=== PATIENT | female | born 1940 | race Caucasian/White ===

== ENCOUNTER → 2018-03-09 15:22 | Outpatient (CLI) | payer MEDICARE, SELFPAY | PROVIDERS: PCP Family Medicine; Visit Provider Student in an Organized Health Care Education/Training Program | DX: Z12.11 Encounter for screening for malignant neoplasm of colon (principal) ==

== ENCOUNTER → 2018-03-09 15:27 | Outpatient (CLI) | payer MEDICARE, SELFPAY ==
[2018-03-09 15:55] LABS: Hematocrit 43.6 % (36-46); Hemoglobin 14.5 g/dL (12.0-16.0); Mean Corpuscular HGB Conc 33.4 % (30-36); Mean Corpuscular Hemoglobin 30.2 PG (26-34); Mean Corpuscular Volume 90.6 fL (80-100); Platelet Count 251 X10^3/uL (150-400); Red Blood Cell Count 4.81 X10^6/uL (4.0-5.2); White Blood Cell Count 6.8 X10^3/uL (4.5-11.0)
[2018-03-09 16:16] LABS: Alanine Aminotransferase 27 IU/L (9-52); Albumin 4.6 g/dL (3.5-5.0); Albumin Globulin Ratio 1.3 (1.0-2.8); Alkaline Phosphatase 89 U/L (38-126); Aspartate Aminotransferase 25 IU/L (14-36); Bilirubin Total 0.3 mg/dL (0.2-1.3); Blood Urea Nitrogen 21 mg/dL (7-17); Calcium 9.8 mg/dL (8.4-10.2); Carbon Dioxide 30 mmol/L (22-32); Chloride 99 mmol/L (98-107); Estimated Glomerular Filt Rate > 60.0 mL/min (>60); Globulin 3.5 g/dL (1.7-4.1); Glucose 100 mg/dL (80-110); HEMOLYSIS < 15 (0-50); Potassium 4.5 mmol/L (3.4-5.1); Sodium 143 mmol/L (137-145); Total Protein 8.1 g/dL (6.3-8.2)
[2018-03-09 16:33] LABS: Vitamin D 25 Hydroxy (D3) 54.6 ng/mL (30.0-100.0)
[2018-03-09 16:34] LABS: Free T4, Direct Thyroxine 1.86 ng/dL (0.78-2.19)
[2018-03-09 16:48] LABS: Thyroid Stimulating Hormone 2.71 uIU/mL (0.47-4.68)
== END ==
PROVIDERS: PCP Student in an Organized Health Care Education/Training Program; Visit Provider Student in an Organized Health Care Education/Training Program
DX: E03.9 Hypothyroidism, unspecified (principal); J30.1 Allergic rhinitis due to pollen; E55.9 Vitamin D deficiency, unspecified; E78.00 Pure hypercholesterolemia, unspecified; I10 Essential (primary) hypertension; Z79.899 Other long term (current) drug therapy
CPT/HCPCS: 36415; 80053; 82306; 84439; 84443; 85027

== ENCOUNTER → 2018-03-16 12:49 | Outpatient (CLI) | payer MEDICARE, SELFPAY ==
[2018-03-19 15:49] LABS: Fecal Immunochemical Test NOT DETECTED
== END ==
PROVIDERS: PCP Student in an Organized Health Care Education/Training Program; Visit Provider Student in an Organized Health Care Education/Training Program
DX: E78.00 Pure hypercholesterolemia, unspecified (principal); I10 Essential (primary) hypertension; E03.9 Hypothyroidism, unspecified; E55.9 Vitamin D deficiency, unspecified; J30.1 Allergic rhinitis due to pollen; Z79.899 Other long term (current) drug therapy; Z12.11 Encounter for screening for malignant neoplasm of colon
CPT/HCPCS: 82274

== ENCOUNTER → 2019-03-27 09:37 | Outpatient (CLI) | payer MEDICARE, SELFPAY | PROVIDERS: PCP Student in an Organized Health Care Education/Training Program; Visit Provider Student in an Organized Health Care Education/Training Program | DX: M81.0 Age-related osteoporosis without current pathological fracture (principal); Z78.0 Asymptomatic menopausal state; E07.9 Disorder of thyroid, unspecified; Z85.3 Personal history of malignant neoplasm of breast; Z82.62 Family history of osteoporosis | CPT/HCPCS: 77080 ==

== ENCOUNTER → 2020-02-02 14:29 | Outpatient (CLI) | payer MEDICARE, SELFPAY ==
--- NOTE | 2020-02-02 14:30 | DI.RAD.S_ITS ---
PROCEDURE: XR CHEST 2V INDICATIONS: Cough, wheeze TECHNIQUE: 2 views of the chest were acquired. COMPARISON: [facility], , CHEST 2 VIEW, 10/22/2015, 12:59. FINDINGS: Surgical changes and devices: Right axillary surgical clips. Lungs and pleura: Lung volumes are increased with flattening of the hemidiaphragms suggesting COPD. Lungs are clear. Mild interstitial prominence unchanged. No pleural effusions or pneumothorax. Mediastinum: Mediastinal contours are normal. Heart size is normal. Bones and chest wall: No suspicious bony abnormalities. Soft tissues appear unremarkable. IMPRESSION: Lung volumes are increased suggesting COPD, correlate with pulmonary functions test. No acute cardiopulmonary disease. Dictated by: Montez BAUTISTA Interpreted: Jaret Ricci MD on 02/02/2020 at 15:14 Approved by: Jaret Ricci M.D. on 02/02/2020 at 15:34
== END ==
PROVIDERS: PCP Student in an Organized Health Care Education/Training Program; Referring Provider Student in an Organized Health Care Education/Training Program; Visit Provider Student in an Organized Health Care Education/Training Program
DX: J45.20 Mild intermittent asthma, uncomplicated (principal); R05 Cough
CPT/HCPCS: 71046

== ENCOUNTER 2020-05-04 05:56 | Inpatient (IN) | payer MEDICARE, SELFPAY ==
[2020-05-04] VITALS (20 sets, daily range): BP systolic 153–208; BP diastolic 79–99; PULSE 84–97; RESP 16–28; TEMP 36–37.2; O2SAT 90–97; BMI 18.8; BMI 18.3
--- NOTE | 2020-05-04 06:10 | DI.RAD.S_ITS ---
PROCEDURE: XR CHEST 1V INDICATIONS: Short of breath TECHNIQUE: One view of the chest was acquired. COMPARISON: [facility], CHEST 2 VIEW, 10/22/2015, 12:59. [facility], CHEST 2 VIEW, 03/15/2014, 10:55. [facility], , XR CHEST 2V, 02/02/2020, 14:28. FINDINGS: Surgical changes and devices: Right axillary clips are seen. Lungs and pleura: Lungs are clear, yet hyperexpanded. No pleural effusions or pneumothorax. Mediastinum: The cardiac contours are within normal limits. The aorta demonstrates calcification and tortuosity. Bones and chest wall: No suspicious bony lesions. Age-appropriate bony degenerative changes are seen. Mild dextroconvex scoliotic curvature is seen. Overlying soft tissues appear unremarkable. IMPRESSION: Hyperexpanded lungs, without an acute cardiopulmonary process identified. Postoperative and degenerative changes are seen. Note: No significant discrepancy from the preliminary report. Dictated by: Gus Chavez M.D. on 05/04/2020 at 7:16 Approved by: Gus Chavez M.D. on 05/04/2020 at 7:16
--- NOTE | 2020-05-04 06:13 | ED_ITS ---
HPI - SOB/Dyspnea <James Man DO - Last Filed: 05/05/20 00:22> General Chief Complaint: Shortness of Breath/Dyspnea Stated Complaint: SOB Time Seen by Provider: 05/04/20 06:00 Source: patient and EMS Mode of arrival: EMS Limitations: no limitations History of Present Illness HPI Narrative: 80-year-old female nonsmoker with history of asthma and hypothyroid presents by EMS with a chief complaint of a few days of gradually worsening shortness of breath. She states that she has not been admitted into the hospital since 1990. She denies exposure to COVID. She denies fever or chills. She denies nausea, vomiting or diarrhea. She has been using her albuterol, without a spacer and has continued to feel tightness with shortness of breath. MD Complaint: shortness of breath and cough Onset (ago): day(s) Severity: moderate Consistency/Duration: constant Relieving factors: nothing Exacerbating factors: exertion Known history of: COPD Associated symptoms: denies other symptoms Treatment prior to arrival: none Related Data Home oxygen amount: none Home Medications Medication Instructions Recorded Confirmed cholecalciferol (vitamin D3) 1,000 iu PO Q DAY #0 08/11/10 05/04/20 [Vitamin D3] montelukast [Singulair] 10 mg PO BEDTIME 05/04/20 05/04/20 Previous Rx's Medication Instructions Recorded levothyroxine 112 mcg tablet 112 mcg PO QAM #90 tab 03/23/19 albuterol sulfate 90 mcg/actuation 2 puff INHALATION Q6H PRN #6.7 gram 01/10/20 aerosol inhaler pravastatin 20 mg tablet 20 mg PO HS #90 tab 03/15/20 tiotropium bromide 2.5 2 inh INHALATION QAM #4 g 03/15/20 mcg/actuation mist for inhalation Allergies Allergy/AdvReac Type Severity Reaction Status Date / Time sulfite AdvReac Severe Vomiting Verified 05/04/20 10:24 ANTIBIOTIC Allergy Mild CANT Uncoded 02/02/20 14:00 REMEMBER NAME seasonal allergies Allergy Mild ITCHY ALL Uncoded 02/02/20 14:00 OVER Review of Systems <James Man DO - Last Filed: 05/05/20 00:22> Constitutional Constitutional: Denies chills, Denies fatigue, Denies fever(s), Denies frequent falls, Denies lethargy and Denies weakness Eyes Eyes: Denies change in vision, Denies eye discharge, Denies irritation and Denies loss of vision ENT Ears, Nose, Mouth, and Throat: Denies change in voice, Denies dizziness, Denies neck pain, Denies sore throat and Denies throat swelling Cardiovascular Cardiovascular: Denies chest pain, Denies irregular heart rhythm, Denies lightheadedness, Denies palpitations, Reports dyspnea, Denies dyspnea on exertion and Denies orthopnea Respiratory Respiratory: Reports cough, Reports dyspnea, Denies dyspnea on exertion and Denies wheezing Gastrointestinal Gastrointestinal: Denies abdominal pain, Denies change in bowel habits, Denies diarrhea, Denies nausea and Denies vomiting Musculoskeletal Musculoskeletal: Denies neck pain and Denies numbness Integumentary/Breasts Skin/Breast: Denies pruritus, Denies erythema, Denies rash and Denies wounds Neurologic Neurologic: Denies behavioral changes, Denies confusion, Denies dizziness, Denies frequent falls, Denies loss of vision, Denies numbness and Denies weakness Psychiatric Psychiatric: Denies anxiety, Denies behavioral changes, Denies confusion, Denies depression, Denies homicidal ideation and Denies suicidal ideation Endocrine Endocrine: Denies fatigue, Denies flushing and Denies palpitations Hematologic/Lymphatic Hematologic/Lymphatic: Denies easy bruising Allergic/Immunologic Allergic/Immunologic: Denies urticaria, Denies throat swelling and Denies wheezing Patient History <James Man DO - Last Filed: 05/05/20 00:22> Medical History Breast cancer (1990) Chicken pox COPD (chronic obstructive pulmonary disease) Hypothyroidism Measles Osteoporosis Whooping cough Surgical History Cataract extraction status of right eye Cataract extraction status, left eye Status post breast lumpectomy (1990) Family History Father Ulcer Mother Alzheimer's disease Sister Gallbladder disease Grandfather Kidney disease Grandmother complication Grandfather Stroke Grandmother Heart attack Social History household members: spouse Smoking Status: Never smoker alcohol intake: current substance use type: does not use Smoking Status: Never smoker Exam <DO Alan Isbell Last Filed: 05/05/20 00:22> Narrative Exam Narrative: GENERAL: [80] year old patient appears stated age. Well- nourished, well-developed patient, in mild distress. HEAD: Atraumatic. Normocephalic. EYES: Pupils equal round and reactive. Extraocular motions intact. No scleral icterus. No injection or drainage. ENT: Nose without bleeding, purulent drainage. Throat without erythema, tonsillar hypertrophy or exudate. Airway patent. NECK: Trachea midline. Non tender CARDIOVASCULAR: Regular rate and rhythm without murmurs, gallops, or rubs. RESPIRATORY: No obvious significant work of breathing. Mild widespread expiratory wheeze. . GASTROINTESTINAL: Abdomen soft, non-tender, nondistended. EXTREMITIES: No edema or joint tenderness. BACK: Nontender without deformity or crepitance. No flank tenderness. NEURO: AOx3. SKIN: No rash or erythema of visible areas Initial Vital Signs Initial Vital Signs: Vital Signs Temperature 98.0 F 05/04/20 06:00 Pulse Rate 91 H 05/04/20 06:00 Respiratory Rate 28 H 05/04/20 06:00 Blood Pressure 208/99 H 05/04/20 06:00 Pulse Oximetry 96 05/04/20 06:00 <Sangita Long DO - Last Filed: 05/04/20 15:03> Initial Vital Signs Initial Vital Signs: Vital Signs Temperature 98.0 F 05/04/20 06:00 Pulse Rate 91 H 05/04/20 06:00 Respiratory Rate 28 H 05/04/20 06:00 Blood Pressure 208/99 H 05/04/20 06:00 Pulse Oximetry 96 05/04/20 06:00 Course <James Man DO - Last Filed: 05/05/20 00:22> Orders Ordered: Acetaminophen (Acetaminophen 325 Mg Tablet) 650 mg PO Q6HR PRN PRN Reason: Fever/Mild Pain (1-3) Albuterol/Ipratropium (Albuterol/Ipratropium 3 Ml Ampul) 3 ml INH Q1H PRN PRN Reason: Shortness Of Breath Last Admin: 05/04/20 08:20 Dose: 3 ml Documented by: DAYTON Albuterol/Ipratropium (Albuterol/Ipratropium 3 Ml Ampul) 3 ml INH [id number] [facility] Last Admin: 05/04/20 18:04 Dose: 3 ml Documented by: DAYTON Bisacodyl (Bisacodyl 10 Mg Supp) 10 mg MD DAILY PRN PRN Reason: Constipation Docusate Sodium (Docusate 100 Mg Capsule) 100 mg PO BID [facility] Last Admin: 05/04/20 21:38 Dose: 100 mg Documented by: ASAD Doxycycline Hyclate (Doxycycline Hyclate 100 Mg Tablet) 100 mg PO BID [facility] Last Admin: 05/04/20 21:39 Dose: 100 mg Documented by: ASAD Enoxaparin Sodium (Enoxaparin 40 Mg/0.4 Ml Syringe) 40 mg SUBCUT DAILY [facility] Last Admin: 05/04/20 15:33 Dose: 40 mg Documented by: SP Dextrose/Sodium Chloride (Dextrose 5%-0.45% Ns) 1,000 mls @ 100 mls/hr IV CONT [facility] Last Admin: 05/04/20 15:32 Dose: 100 mls/hr Documented by: SP Levothyroxine Sodium (Levothyroxine 112 Mcg Tablet) 112 mcg PO DAILY@0600 [facility] Methylprednisolone (Methylprednisolone 125 Mg/2 Ml Vial) 60 mg IV Q8H [facility] Last Admin: 05/04/20 21:38 Dose: 60 mg Documented by: Admin: 05/04/20 15:32 Dose: 60 mg Documented by: SP Montelukast Sodium (Montelukast 10 Mg Tablet) 10 mg PO DAILY [facility] Last Admin: 05/04/20 15:25 Dose: Not Given Documented by: SP Naloxone HCl (Naloxone 0.4 Mg/Ml Vial) 0.2 mg IV Q2MIN PRN PRN Reason: Opiate Reversal Ondansetron HCl (Ondansetron 4 Mg/2 Ml Inj) 4 mg IV Q8HR PRN PRN Reason: Nausea And Vomiting Pravastatin Sodium (Pravastatin 20 Mg Tablet) 20 mg PO BEDTIME [facility] Last Admin: 05/04/20 21:39 Dose: 20 mg Documented by: ASAD Fluticasone/Salmeterol (Fluticasone/Salmeterol 250/50 60 Puff Diskus) 1 puff INH RTBID [facility] Last Admin: 05/04/20 18:10 Dose: 1 puff Documented by: DAYTON Discontinued Medications Albuterol (Albuterol Hfa Mdi 60 Puff/8 Gm Inhaler) 2 puff INH NOW ONE Stop: 05/04/20 06:11 Last Admin: 05/04/20 06:37 Dose: 2 puff Documented by: MARY JANE Prednisone (Prednisone 20 Mg Tablet) 40 mg PO NOW ONE Stop: 05/04/20 06:11 Last Admin: 05/04/20 06:28 Dose: 40 mg Documented by: OFE Vital Signs Vital signs: Vital Signs - 8 hr 05/04/20 07:30 05/04/20 08:00 05/04/20 08:24 Temperature Pulse Rate 85 87 92 H Respiratory Rate 18 Blood Pressure Pulse Oximetry 94 92 92 05/04/20 08:30 05/04/20 09:00 05/04/20 09:30 Temperature Pulse Rate 97 H 93 H 90 Respiratory Rate Blood Pressure Pulse Oximetry 94 91 92 05/04/20 10:00 05/04/20 10:17 05/04/20 12:40 Temperature 96.8 F L Pulse Rate 91 H 91 H 93 H Respiratory Rate 18 Blood Pressure 172/89 H 175/95 H Pulse Oximetry 94 97 95 <Sangita Long, DO - Last Filed: 05/04/20 15:03> Orders Ordered: Acetaminophen (Acetaminophen 325 Mg Tablet) 650 mg PO Q6HR PRN PRN Reason: Fever/Mild Pain (1-3) Albuterol/Ipratropium (Albuterol/Ipratropium 3 Ml Ampul) 3 ml INH Q1H PRN PRN Reason: Shortness Of Breath Last Admin: 05/04/20 08:20 Dose: 3 ml Documented by: DAYTON Albuterol/Ipratropium (Albuterol/Ipratropium 3 Ml Ampul) 3 ml INH [id number] [facility] Last Admin: 05/04/20 18:04 Dose: 3 ml Documented by: DAYTON Bisacodyl (Bisacodyl 10 Mg Supp) 10 mg MD DAILY PRN PRN Reason: Constipation Docusate Sodium (Docusate 100 Mg Capsule) 100 mg PO BID [facility] Last Admin: 05/04/20 21:38 Dose: 100 mg Documented by: ASAD Doxycycline Hyclate (Doxycycline Hyclate 100 Mg Tablet) 100 mg PO BID [facility] Last Admin: 05/04/20 21:39 Dose: 100 mg Documented by: ASAD Enoxaparin Sodium (Enoxaparin 40 Mg/0.4 Ml Syringe) 40 mg SUBCUT DAILY [facility] Last Admin: 05/04/20 15:33 Dose: 40 mg Documented by: SP Dextrose/Sodium Chloride (Dextrose 5%-0.45% Ns) 1,000 mls @ 100 mls/hr IV CONT [facility] Last Admin: 05/04/20 15:32 Dose: 100 mls/hr Documented by: SP Levothyroxine Sodium (Levothyroxine 112 Mcg Tablet) 112 mcg PO DAILY@0600 [facility] Methylprednisolone (Methylprednisolone 125 Mg/2 Ml Vial) 60 mg IV Q8H [facility] Last Admin: 05/04/20 21:38 Dose: 60 mg Documented by: Admin: 05/04/20 15:32 Dose: 60 mg Documented by: SP Montelukast Sodium (Montelukast 10 Mg Tablet) 10 mg PO DAILY [facility] Last Admin: 05/04/20 15:25 Dose: Not Given Documented by: SP Naloxone HCl (Naloxone 0.4 Mg/Ml Vial) 0.2 mg IV Q2MIN PRN PRN Reason: Opiate Reversal Ondansetron HCl (Ondansetron 4 Mg/2 Ml Inj) 4 mg IV Q8HR PRN PRN Reason: Nausea And Vomiting Pravastatin Sodium (Pravastatin 20 Mg Tablet) 20 mg PO BEDTIME [facility] Last Admin: 05/04/20 21:39 Dose: 20 mg Documented by: ASAD Fluticasone/Salmeterol (Fluticasone/Salmeterol 250/50 60 Puff Diskus) 1 puff INH RTBID [facility] Last Admin: 05/04/20 18:10 Dose: 1 puff Documented by: DAYTON Discontinued Medications Albuterol (Albuterol Hfa Mdi 60 Puff/8 Gm Inhaler) 2 puff INH NOW ONE Stop: 05/04/20 06:11 Last Admin: 05/04/20 06:37 Dose: 2 puff Documented by: MARY JANE Prednisone (Prednisone 20 Mg Tablet) 40 mg PO NOW ONE Stop: 05/04/20 06:11 Last Admin: 05/04/20 06:28 Dose: 40 mg Documented by: OFE Vital Signs Vital signs: Vital Signs - 8 hr 05/04/20 07:30 05/04/20 08:00 05/04/20 08:24 Temperature Pulse Rate 85 87 92 H Respiratory Rate 18 Blood Pressure Pulse Oximetry 94 92 92 05/04/20 08:30 05/04/20 09:00 05/04/20 09:30 Temperature Pulse Rate 97 H 93 H 90 Respiratory Rate Blood Pressure Pulse Oximetry 94 91 92 05/04/20 10:00 05/04/20 10:17 05/04/20 12:40 Temperature 96.8 F L Pulse Rate 91 H 91 H 93 H Respiratory Rate 18 Blood Pressure 172/89 H 175/95 H Pulse Oximetry 94 97 95 MDM - SOB/Dyspnea <James aMn DO - Last Filed: 05/05/20 00:22> Lab Data Result diagrams: 05/04/20 06:00 05/04/20 06:00 Labs: Lab Results 05/04/20 05/04/20 05/04/20 Range/Units 06:00 06:00 06:00 WBC 10.3 (4.5-11.0) X10^3/uL RBC 4.62 (4.0-5.2) X10^6/uL Hgb 13.1 (12.0-16.0) g/dL Hct 40.6 (36-46) % MCV 87.8 (80-100) fL MCH 28.3 (26-34) PG MCHC 32.2 (30-36) % RDW 12.6 (11.6-14.8) % Plt Count 438 H (150-400) X10^3/uL Neut % (Auto) 68.8 (50-75) % Lymph % (Auto) 14.6 L (25-40) % Morrison % (Auto) 6.9 (3-14) % Eos % (Auto) 9.3 H (2-4) % Baso % (Auto) 0.4 (0-2) % Neut # (Auto) 7100 H (6353-5014) /uL Lymph # (Auto) 1500 (3146-9685) /uL Morrison # (Auto) 700 (0-900) /uL Eos # (Auto) 1000 H (0-450) /uL Baso # (Auto) 0 (0-100) /uL D-Dimer (<230) ng/mL Sodium 139 (137-145) mmol/L Potassium 3.6 (3.4-5.1) mmol/L Chloride 101 (98-107) mmol/L Carbon Dioxide 35 H (22-32) mmol/L BUN 18 H (7-17) mg/dL Creatinine 1.05 H (0.52-1.04) mg/dL Estimated GFR 50.3 L (>60) mL/min BUN/Creatinine Ratio 17.1 (6-22) Glucose 111 H (80-110) mg/dL Calcium 9.4 (8.4-10.2) mg/dL Total Creatine Kinase (30-135) U/L CK-MB (CK-2) CK-MB (CK-2) Rel Index Troponin I (0.01-0.034) ng/mL NT-Pro-B Natriuret Pep (<450) pg/mL Procalcitonin < 0.05 (<0.5) ng/mL Chlamy pneumoniae PCR (Not Detect) Adenovirus (PCR) (Not Detect) B.parapertussis DNA PCR (Not Detect) Coronavirus OC43 (PCR) (Not Detect) Coronavirus HKU1 (PCR) (Not Detect) Coronavirus 229E (PCR) (Not Detect) SARS-CoV-2 (PCR) (Negative) Coronavirus NL63 (PCR) (Not Detect) Human Metapneumovir PCR (Not Detect) Influenza Type A (PCR) (Not Detect) Influenza Type B (PCR) (Not Detect) M. pneumoniae (PCR) (Not Detect) Parainfluenza 1 (PCR) (Not Detect) Parainfluenza 2 (PCR) (Not Detect) Parainfluenza 3 (PCR) (Not Detect) Parainfluenza 4 (PCR) (Not Detect) RSV (PCR) (Not Detect) Entero/Rhino (PCR) (Not Detect) 05/04/20 05/04/20 05/04/20 Range/Units 06:13 08:55 08:55 WBC (4.5-11.0) X10^3/uL RBC (4.0-5.2) X10^6/uL Hgb (12.0-16.0) g/dL Hct (36-46) % MCV (80-100) fL MCH (26-34) PG MCHC (30-36) % RDW (11.6-14.8) % Plt Count (150-400) X10^3/uL Neut % (Auto) (50-75) % Lymph % (Auto) (25-40) % Morrison % (Auto) (3-14) % Eos % (Auto) (2-4) % Baso % (Auto) (0-2) % Neut # (Auto) (4031-9270) /uL Lymph # (Auto) (0732-6366) /uL Morrison # (Auto) (0-900) /uL Eos # (Auto) (0-450) /uL Baso # (Auto) (0-100) /uL D-Dimer 351 H (<230) ng/mL Sodium (137-145) mmol/L Potassium (3.4-5.1) mmol/L Chloride (98-107) mmol/L Carbon Dioxide (22-32) mmol/L BUN (7-17) mg/dL Creatinine (0.52-1.04) mg/dL Estimated GFR (>60) mL/min BUN/Creatinine Ratio (6-22) Glucose (80-110) mg/dL Calcium (8.4-10.2) mg/dL Total Creatine Kinase 45 (30-135) U/L CK-MB (CK-2) TNP CK-MB (CK-2) Rel Index TNP Troponin I < 0.012 (0.01-0.034) ng/mL NT-Pro-B Natriuret Pep 379 (<450) pg/mL Procalcitonin (<0.5) ng/mL Chlamy pneumoniae PCR (Not Detect) Adenovirus (PCR) (Not Detect) B.parapertussis DNA PCR (Not Detect) Coronavirus OC43 (PCR) (Not Detect) Coronavirus HKU1 (PCR) (Not Detect) Coronavirus 229E (PCR) (Not Detect) SARS-CoV-2 (PCR) Negative (Negative) Coronavirus NL63 (PCR) (Not Detect) Human Metapneumovir PCR (Not Detect) Influenza Type A (PCR) (Not Detect) Influenza Type B (PCR) (Not Detect) M. pneumoniae (PCR) (Not Detect) Parainfluenza 1 (PCR) (Not Detect) Parainfluenza 2 (PCR) (Not Detect) Parainfluenza 3 (PCR) (Not Detect) Parainfluenza 4 (PCR) (Not Detect) RSV (PCR) (Not Detect) Entero/Rhino (PCR) (Not Detect) 05/04/20 Range/Units 11:18 WBC (4.5-11.0) X10^3/uL RBC (4.0-5.2) X10^6/uL Hgb (12.0-16.0) g/dL Hct (36-46) % MCV (80-100) fL MCH (26-34) PG MCHC (30-36) % RDW (11.6-14.8) % Plt Count (150-400) X10^3/uL Neut % (Auto) (50-75) % Lymph % (Auto) (25-40) % Morrison % (Auto) (3-14) % Eos % (Auto) (2-4) % Baso % (Auto) (0-2) % Neut # (Auto) (5330-7134) /uL Lymph # (Auto) (0057-9174) /uL Morrison # (Auto) (0-900) /uL Eos # (Auto) (0-450) /uL Baso # (Auto) (0-100) /uL D-Dimer (<230) ng/mL Sodium (137-145) mmol/L Potassium (3.4-5.1) mmol/L Chloride (98-107) mmol/L Carbon Dioxide (22-32) mmol/L BUN (7-17) mg/dL Creatinine (0.52-1.04) mg/dL Estimated GFR (>60) mL/min BUN/Creatinine Ratio (6-22) Glucose (80-110) mg/dL Calcium (8.4-10.2) mg/dL Total Creatine Kinase (30-135) U/L CK-MB (CK-2) CK-MB (CK-2) Rel Index Troponin I (0.01-0.034) ng/mL NT-Pro-B Natriuret Pep (<450) pg/mL Procalcitonin (<0.5) ng/mL Chlamy pneumoniae PCR Not detected (Not Detect) Adenovirus (PCR) Not detected (Not Detect) B.parapertussis DNA PCR Not detected (Not Detect) Coronavirus OC43 (PCR) Not detected (Not Detect) Coronavirus HKU1 (PCR) Not detected (Not Detect) Coronavirus 229E (PCR) Not detected (Not Detect) SARS-CoV-2 (PCR) Not detected (Negative) Coronavirus NL63 (PCR) Not detected (Not Detect) Human Metapneumovir PCR Not detected (Not Detect) Influenza Type A (PCR) Not detected (Not Detect) Influenza Type B (PCR) Not detected (Not Detect) M. pneumoniae (PCR) Not detected (Not Detect) Parainfluenza 1 (PCR) Not detected (Not Detect) Parainfluenza 2 (PCR) Not detected (Not Detect) Parainfluenza 3 (PCR) Not detected (Not Detect) Parainfluenza 4 (PCR) Not detected (Not Detect) RSV (PCR) Not detected (Not Detect) Entero/Rhino (PCR) Not detected (Not Detect) <Sangita Long, - Last Filed: 05/04/20 15:03> Lab Data Attestation: I reviewed the patient's lab results. Labs: Lab Results 05/04/20 05/04/20 05/04/20 Range/Units 06:00 06:00 06:00 WBC 10.3 (4.5-11.0) X10^3/uL RBC 4.62 (4.0-5.2) X10^6/uL Hgb 13.1 (12.0-16.0) g/dL Hct 40.6 (36-46) % MCV 87.8 (80-100) fL MCH 28.3 (26-34) PG MCHC 32.2 (30-36) % RDW 12.6 (11.6-14.8) % Plt Count 438 H (150-400) X10^3/uL Neut % (Auto) 68.8 (50-75) % Lymph % (Auto) 14.6 L (25-40) % Morrison % (Auto) 6.9 (3-14) % Eos % (Auto) 9.3 H (2-4) % Baso % (Auto) 0.4 (0-2) % Neut # (Auto) 7100 H (3822-2639) /uL Lymph # (Auto) 1500 (7740-9882) /uL Morrison # (Auto) 700 (0-900) /uL Eos # (Auto) 1000 H (0-450) /uL Baso # (Auto) 0 (0-100) /uL D-Dimer (<230) ng/mL Sodium 139 (137-145) mmol/L Potassium 3.6 (3.4-5.1) mmol/L Chloride 101 (98-107) mmol/L Carbon Dioxide 35 H (22-32) mmol/L BUN 18 H (7-17) mg/dL Creatinine 1.05 H (0.52-1.04) mg/dL Estimated GFR 50.3 L (>60) mL/min BUN/Creatinine Ratio 17.1 (6-22) Glucose 111 H (80-110) mg/dL Calcium 9.4 (8.4-10.2) mg/dL Total Creatine Kinase (30-135) U/L CK-MB (CK-2) CK-MB (CK-2) Rel Index Troponin I (0.01-0.034) ng/mL NT-Pro-B Natriuret Pep (<450) pg/mL Procalcitonin < 0.05 (<0.5) ng/mL Chlamy pneumoniae PCR (Not Detect) Adenovirus (PCR) (Not Detect) B.parapertussis DNA PCR (Not Detect) Coronavirus OC43 (PCR) (Not Detect) Coronavirus HKU1 (PCR) (Not Detect) Coronavirus 229E (PCR) (Not Detect) SARS-CoV-2 (PCR) (Negative) Coronavirus NL63 (PCR) (Not Detect) Human Metapneumovir PCR (Not Detect) Influenza Type A (PCR) (Not Detect) Influenza Type B (PCR) (Not Detect) M. pneumoniae (PCR) (Not Detect) Parainfluenza 1 (PCR) (Not Detect) Parainfluenza 2 (PCR) (Not Detect) Parainfluenza 3 (PCR) (Not Detect) Parainfluenza 4 (PCR) (Not Detect) RSV (PCR) (Not Detect) Entero/Rhino (PCR) (Not Detect) 05/04/20 05/04/20 05/04/20 Range/Units 06:13 08:55 08:55 WBC (4.5-11.0) X10^3/uL RBC (4.0-5.2) X10^6/uL Hgb (12.0-16.0) g/dL Hct (36-46) % MCV (80-100) fL MCH (26-34) PG MCHC (30-36) % RDW (11.6-14.8) % Plt Count (150-400) X10^3/uL Neut % (Auto) (50-75) % Lymph % (Auto) (25-40) % Morrison % (Auto) (3-14) % Eos % (Auto) (2-4) % Baso % (Auto) (0-2) % Neut # (Auto) (7535-8859) /uL Lymph # (Auto) (4729-8623) /uL Morrison # (Auto) (0-900) /uL Eos # (Auto) (0-450) /uL Baso # (Auto) (0-100) /uL D-Dimer 351 H (<230) ng/mL Sodium (137-145) mmol/L Potassium (3.4-5.1) mmol/L Chloride (98-107) mmol/L Carbon Dioxide (22-32) mmol/L BUN (7-17) mg/dL Creatinine (0.52-1.04) mg/dL Estimated GFR (>60) mL/min BUN/Creatinine Ratio (6-22) Glucose (80-110) mg/dL Calcium (8.4-10.2) mg/dL Total Creatine Kinase 45 (30-135) U/L CK-MB (CK-2) TNP CK-MB (CK-2) Rel Index TNP Troponin I < 0.012 (0.01-0.034) ng/mL NT-Pro-B Natriuret Pep 379 (<450) pg/mL Procalcitonin (<0.5) ng/mL Chlamy pneumoniae PCR (Not Detect) Adenovirus (PCR) (Not Detect) B.parapertussis DNA PCR (Not Detect) Coronavirus OC43 (PCR) (Not Detect) Coronavirus HKU1 (PCR) (Not Detect) Coronavirus 229E (PCR) (Not Detect) SARS-CoV-2 (PCR) Negative (Negative) Coronavirus NL63 (PCR) (Not Detect) Human Metapneumovir PCR (Not Detect) Influenza Type A (PCR) (Not Detect) Influenza Type B (PCR) (Not Detect) M. pneumoniae (PCR) (Not Detect) Parainfluenza 1 (PCR) (Not Detect) Parainfluenza 2 (PCR) (Not Detect) Parainfluenza 3 (PCR) (Not Detect) Parainfluenza 4 (PCR) (Not Detect) RSV (PCR) (Not Detect) Entero/Rhino (PCR) (Not Detect) 05/04/20 Range/Units 11:18 WBC (4.5-11.0) X10^3/uL RBC (4.0-5.2) X10^6/uL Hgb (12.0-16.0) g/dL Hct (36-46) % MCV (80-100) fL MCH (26-34) PG MCHC (30-36) % RDW (11.6-14.8) % Plt Count (150-400) X10^3/uL Neut % (Auto) (50-75) % Lymph % (Auto) (25-40) % Morrison % (Auto) (3-14) % Eos % (Auto) (2-4) % Baso % (Auto) (0-2) % Neut # (Auto) (2852-8945) /uL Lymph # (Auto) (0883-1633) /uL Morrison # (Auto) (0-900) /uL Eos # (Auto) (0-450) /uL Baso # (Auto) (0-100) /uL D-Dimer (<230) ng/mL Sodium (137-145) mmol/L Potassium (3.4-5.1) mmol/L Chloride (98-107) mmol/L Carbon Dioxide (22-32) mmol/L BUN (7-17) mg/dL Creatinine (0.52-1.04) mg/dL Estimated GFR (>60) mL/min BUN/Creatinine Ratio (6-22) Glucose (80-110) mg/dL Calcium (8.4-10.2) mg/dL Total Creatine Kinase (30-135) U/L CK-MB (CK-2) CK-MB (CK-2) Rel Index Troponin I (0.01-0.034) ng/mL NT-Pro-B Natriuret Pep (<450) pg/mL Procalcitonin (<0.5) ng/mL Chlamy pneumoniae PCR Not detected (Not Detect) Adenovirus (PCR) Not detected (Not Detect) B.parapertussis DNA PCR Not detected (Not Detect) Coronavirus OC43 (PCR) Not detected (Not Detect) Coronavirus HKU1 (PCR) Not detected (Not Detect) Coronavirus 229E (PCR) Not detected (Not Detect) SARS-CoV-2 (PCR) Not detected (Negative) Coronavirus NL63 (PCR) Not detected (Not Detect) Human Metapneumovir PCR Not detected (Not Detect) Influenza Type A (PCR) Not detected (Not Detect) Influenza Type B (PCR) Not detected (Not Detect) M. pneumoniae (PCR) Not detected (Not Detect) Parainfluenza 1 (PCR) Not detected (Not Detect) Parainfluenza 2 (PCR) Not detected (Not Detect) Parainfluenza 3 (PCR) Not detected (Not Detect) Parainfluenza 4 (PCR) Not detected (Not Detect) RSV (PCR) Not detected (Not Detect) Entero/Rhino (PCR) Not detected (Not Detect) Imaging Data Chest x-ray: Radiologist's Impression: PROCEDURE: XR CHEST 1V INDICATIONS: Short of breath TECHNIQUE: One view of the chest was acquired. COMPARISON: [facility], CHEST 2 VIEW, 10/22/2015, 12:59. [facility], CHEST 2 VIEW, 03/15/2014, 10:55. [facility], XR CHEST 2V, 02/02/2020, 14:28. FINDINGS: Surgical changes and devices: Right axillary clips are seen. Lungs and pleura: Lungs are clear, yet hyperexpanded. No pleural effusions or pneumothorax. Mediastinum: The cardiac contours are within normal limits. The aorta demonstrates calcification and tortuosity. Bones and chest wall: No suspicious bony lesions. Age-appropriate bony degenerative changes are seen. Mild dextroconvex scoliotic curvature is seen. Overlying soft tissues appear unremarkable. IMPRESSION: Hyperexpanded lungs, without an acute cardiopulmonary process identified. Postoperative and degenerative changes are seen. Note: No significant discrepancy from the preliminary report. Dictated by: Gus Chavez M.D. on 05/04/2020 at 7:16 Approved by: Gus Chavez M.D. on 05/04/2020 at 7:16 CT scan - chest: Radiologist's Impression: PROCEDURE: CT ANGIO CHEST PE PROTOCOL INDICATIONS: hypoxia TECHNIQUE: After the administration of intravenous contrast, 2 mm thick sections acquired from the pulmonary apices to the posterior costophrenic angles. 3-dimensional maximum intensity projection (MIP) coronal and sagittal reformats were then acquired through the thorax. For radiation dose reduction, the following was used: automated exposure control, adjustment of mA and/or kV according to patient size. COMPARISON: [facility], CR, XR CHEST 2V, 02/02/2020, 14:28. [facility], CR, XR CHEST 1V, 05/04/2020, 6:37. FINDINGS: Image quality: There is artifact associated with the metallic hardware. Pulmonary arteries: Pulmonary arteries are normal in size, and demonstrate no intraluminal filling defects to suggest central pulmonary embolism. Lungs and pleura: No focal infiltrates are seen. Areas of mucous plugging can be seen involving the lower lobes. No pleural effusions or pneumothorax. Central and peripheral airways are patent. Mediastinum: Heart size is normal, without pericardial effusion. No mediastinal or hilar adenopathy. Thoracic aorta is normal in caliber and enhancement. Esophagus is normal in caliber. There is a small hiatal hernia. Bones and chest wall: No suspicious bony lesions. Ribs and thoracic spine appear intact throughout. Age-appropriate bony degenerative changes are seen. Accentuated thoracic kyphosis is seen. Thyroid gland is small in size. No axillary or supraclavicular adenopathy. Status post right mastectomy. Right axillary clips are seen, with associated streak artifact. Abdomen: Apparent simple appearing liver cysts are seen. Incidental note is made of an accessory splenule along the hilum of the primary spleen. The visualized portions of the upper abdominal structures are otherwise unremarkable for imaging technique. IMPRESSION: Negative for pulmonary embolism. Areas of mucous plugging can be seen involving both lower lobes. No focal infiltrates are detected. Incidental note is made of: Right mastectomy, with right axillary clips Small hiatal hernia Simple appearing liver cysts Accessory splenule Dictated by: Gus Chavez M.D. on 05/04/2020 at 10:55 ECG Data Attestation: I personally reviewed and interpreted this ECG as follows: Prior ECG tracings: not available for review Interpretation: Sinus rhythm rate 93 p.r. interval 150 QRS [address] fan ges T-wave inversions no priors to compare MDM Narrative Medical decision making narrative: Received sign-out from Dr. Man next seen evaluated patient myself. She is still having bilateral wheezing O2 sat of 91%. She says she still does feel really great. She is short of breath when she walks. She was diagnosed with asthma about 10 years ago when she moved here. She previously did not have a rescue inhaler she has a rescue inhaler now she has been using it not much relief. She denies fever chills. Has a nonproductive cough. She is having some chest tightness. COVID-19 is negative. The patient is re-examined after albuterol nebulizer she is still quite wheezy. Ambulation trial O2 went down as far as 82% and she did not feel well. Troponin BNP are negative EKG does not show any specific changes. Patient has history of asthma seems to be asthma exacerbation. Dr. Leal updated patient's symptoms test results agrees with admission. Agrees with CT scan with persistent hypoxia. Discharge Plan Departure Patient Disposition: Admitted As Inpatient Clinical Impression: Asthma with exacerbation Qualifiers: Asthma severity: moderate Asthma persistence: unspecified Qualified Code(s): J45.901 - Unspecified asthma with (acute) exacerbation Admit Date/Time: 05/04/20 12:57 Admit Provider: Kalina Leal
[2020-05-04 06:25] LABS: Add Manual Diff / Slide Review NO; Basophils Absolute Auto 0 /uL (0-100); Basophils Percent Auto 0.4 % (0-2); Eosinophils Absolute Auto 1000 /uL (0-450); Eosinophils Percent Auto 9.3 % (2-4); Hematocrit 40.6 % (36-46); Hemoglobin 13.1 g/dL (12.0-16.0); Lymphocytes Absolute Auto 1500 /uL (1100-4500); Lymphocytes Percent Auto 14.6 % (25-40); Mean Corpuscular HGB Conc 32.2 % (30-36); Mean Corpuscular Hemoglobin 28.3 PG (26-34); Mean Corpuscular Volume 87.8 fL (80-100); Monocytes Absolute Auto 700 /uL (0-900); Monocytes Percent Auto 6.9 % (3-14); Neutrophils Absolute Auto 7100 /uL (1500-7000); Neutrophils Percent Auto 68.8 % (50-75); Platelet Count 438 X10^3/uL (150-400); Red Blood Cell Count 4.62 X10^6/uL (4.0-5.2); Red Cell Distribution Width 12.6 % (11.6-14.8); White Blood Cell Count 10.3 X10^3/uL (4.5-11.0)
[2020-05-04] MEDS: predniSONE 20 MG TABLET 40 MG PO (06:28)
[2020-05-04 06:32] LABS: BUN Creatinine Ratio 17.1 (6-22); Blood Urea Nitrogen 18 mg/dL (7-17); Calcium 9.4 mg/dL (8.4-10.2); Carbon Dioxide 35 mmol/L (22-32); Chloride 101 mmol/L (98-107); Estimated Glomerular Filt Rate 50.3 mL/min (>60); Glucose 111 mg/dL (80-110); HEMOLYSIS 17 (0-50); Potassium 3.6 mmol/L (3.4-5.1); Sodium 139 mmol/L (137-145)
[2020-05-04] MEDS: ALBUTEROL HFA MDI 60 PUFF/8 GM INHALER INH (06:37)
[2020-05-04 06:41] LABS: COVID19 -Nasal RAPID Negative (Negative)
[2020-05-04 06:57] LABS: Procalcitonin < 0.05 ng/mL (<0.5)
[2020-05-04] MEDS: ALBUTEROL/IPRATROPIUM 3 ML AMPUL INH ×2 (08:20→18:04)
--- NOTE | 2020-05-04 08:50 | PC.NURSE ---
drawn by lab
[2020-05-04 09:20] LABS: Creatine Kinase 45 U/L (30-135); D Dimer 351 ng/mL (<230)
--- NOTE | 2020-05-04 09:24 | PC.NURSE ---
Pt self adminiisters levothyroxine home medication with Dr Long's okay.
[2020-05-04 09:32] LABS: NT-proBNP (BNP-Adult 18+) 379 pg/mL (<450); Troponin I < 0.012 ng/mL (0.01-0.034)
--- NOTE | 2020-05-04 10:12 | PC.NURSE ---
Walking to bathroom 85-82% on room air w/ shortness of breath, unable top speak in full sentences. Once laying down 90% on room air. Placed on 2 L NC oxygen
--- NOTE | 2020-05-04 11:05 | DI.CT.S_ITS ---
PROCEDURE: CT ANGIO CHEST PE PROTOCOL INDICATIONS: hypoxia TECHNIQUE: After the administration of intravenous contrast, 2 mm thick sections acquired from the pulmonary apices to the posterior costophrenic angles. 3-dimensional maximum intensity projection (MIP) coronal and sagittal reformats were then acquired through the thorax. For radiation dose reduction, the following was used: automated exposure control, adjustment of mA and/or kV according to patient size. COMPARISON: [facility], CR, XR CHEST 2V, 02/02/2020, 14:28. [facility], CR, XR CHEST 1V, 05/04/2020, 6:37. FINDINGS: Image quality: There is artifact associated with the metallic hardware. Pulmonary arteries: Pulmonary arteries are normal in size, and demonstrate no intraluminal filling defects to suggest central pulmonary embolism. Lungs and pleura: No focal infiltrates are seen. Areas of mucous plugging can be seen involving the lower lobes. No pleural effusions or pneumothorax. Central and peripheral airways are patent. Mediastinum: Heart size is normal, without pericardial effusion. No mediastinal or hilar adenopathy. Thoracic aorta is normal in caliber and enhancement. Esophagus is normal in caliber. There is a small hiatal hernia. Bones and chest wall: No suspicious bony lesions. Ribs and thoracic spine appear intact throughout. Age-appropriate bony degenerative changes are seen. Accentuated thoracic kyphosis is seen. Thyroid gland is small in size. No axillary or supraclavicular adenopathy. Status post right mastectomy. Right axillary clips are seen, with associated streak artifact. Abdomen: Apparent simple appearing liver cysts are seen. Incidental note is made of an accessory splenule along the hilum of the primary spleen. The visualized portions of the upper abdominal structures are otherwise unremarkable for imaging technique. IMPRESSION: Negative for pulmonary embolism. Areas of mucous plugging can be seen involving both lower lobes. No focal infiltrates are detected. Incidental note is made of: Right mastectomy, with right axillary clips Small hiatal hernia Simple appearing liver cysts Accessory splenule Dictated by: Gus Chavez M.D. on 05/04/2020 at 10:55 Approved by: Gus Chavez M.D. on 05/04/2020 at 10:59
[2020-05-04 12:42] LABS: Adenovirus Not Detected (Not Detect); Bordetella pertussis Not Detected (Not Detect); Chlamydophila pneumoniae Not Detected (Not Detect); Coronavirus 229E Not Detected (Not Detect); Coronavirus HKU1 Not Detected (Not Detect); Coronavirus NL 63 Not Detected (Not Detect); Coronavirus OC43 Not Detected (Not Detect); Human Metapneumovirus Not Detected (Not Detect); Human Rhinovirus/Enterovirus Not Detected (Not Detect); Influenza A Not Detected (Not Detect); Influenza B Not Detected (Not Detect); Mycoplasma pneumoniae Not Detected (Not Detect); Parainfluenza Virus 1 Not Detected (Not Detect); Parainfluenza Virus 2 Not Detected (Not Detect); Parainfluenza Virus 3 Not Detected (Not Detect); Parainfluenza Virus 4 Not Detected (Not Detect); Respiratory Syncytial Virus Not Detected (Not Detect); SARS- CoV-2 Not Detected (Not Detecte)
--- NOTE | 2020-05-04 13:52 | PM.HP.1 ---
History of Present Illness History of Present Illness Date Patient Seen: 05/04/20 Chief complaint: SOB Narrative: Patient is an 80-year-old female with a history of COPD, hypothyroidism, remote history of breast cancer, who presents to the hospital for increasing shortness of breath. Patient reports her symptoms have been coming along for some time. She received a Spiriva inhaler 6 weeks ago. She noted her breathing felt better initially. However over the past week she has been increasingly short of breath, had associated cough, also reports dyspnea on exertion and orthopnea. Because her symptoms were progressively worse she called 911 to be brought to the hospital for evaluation. The patient was found to be hypoxic. She was diffusely wheezing. She was given multiple inhalers and steroids but continued to be symptomatic. The patient's chest x-ray did not show any evidence of infiltrate. She did have a CT angio which showed following findings No focal infiltrates are seen. Areas of mucous plugging can be seeninvolving the lower lobes. No pleural effusions or pneumothorax. Central and peripheral airways are patent. While talking to the patient on room air her oxygen saturation was 88%. She does report a productive cough with clear white phlegm. She is admitted to the hospital for acute hypoxic respiratory failure secondary to COPD/asthma. Patient History Medical History Breast cancer (1990) Chicken pox COPD (chronic obstructive pulmonary disease) Hypothyroidism Measles Osteoporosis Whooping cough Surgical History Cataract extraction status of right eye Cataract extraction status, left eye Status post breast lumpectomy (1990) Family & Social History Family History Father Ulcer Mother Alzheimer's disease Sister Gallbladder disease Grandfather Kidney disease Grandmother complication Grandfather Stroke Grandmother Heart attack Safety & Behavioral: Feels Safe in Current Yes Environment Been Physically Hurt or No Threatened By a Person Tobacco & Substance use: Smoking Status Never smoker alcohol intake current Meds Home Medications and Allergies Home Medications Medication Instructions Recorded Confirmed Type cholecalciferol (vitamin D3) 1,000 iu PO Q DAY #0 08/11/10 05/04/20 History [Vitamin D3] levothyroxine 112 mcg tablet 112 mcg PO QAM #90 tab 03/23/19 05/04/20 Rx albuterol sulfate 90 mcg/actuation 2 puff INHALATION Q6H PRN #6.7 gram 01/10/20 05/04/20 Rx aerosol inhaler pravastatin 20 mg tablet 20 mg PO HS #90 tab 03/15/20 05/04/20 Rx tiotropium bromide 2.5 2 inh INHALATION QAM #4 g 03/15/20 05/04/20 Rx mcg/actuation mist for inhalation montelukast [Singulair] 10 mg PO BEDTIME 05/04/20 05/04/20 History Allergies Allergy/AdvReac Type Severity Reaction Status Date / Time sulfite AdvReac Severe Vomiting Verified 05/04/20 10:24 ANTIBIOTIC Allergy Mild CANT Uncoded 02/02/20 14:00 REMEMBER NAME seasonal allergies Allergy Mild ITCHY ALL Uncoded 02/02/20 14:00 OVER Review of Systems Review of Systems ROS: Yes All systems reviewed with the patient and are negative except as otherwise documented Exam Vital Signs (past 8 hours): - 05/04/20 06:00 05/04/20 06:07 05/04/20 06:19 Temperature 98.0 F Pulse Rate 91 H 89 84 Respiratory Rate 28 H 16 Blood Pressure 208/99 H Pulse Oximetry 96 96 97 05/04/20 06:30 05/04/20 07:00 05/04/20 07:30 Temperature Pulse Rate 86 85 85 Respiratory Rate Blood Pressure Pulse Oximetry 95 95 94 05/04/20 08:00 05/04/20 08:24 05/04/20 08:30 Temperature Pulse Rate 87 92 H 97 H Respiratory Rate 18 Blood Pressure Pulse Oximetry 92 92 94 05/04/20 09:00 05/04/20 09:30 05/04/20 10:00 Temperature Pulse Rate 93 H 90 91 H Respiratory Rate Blood Pressure Pulse Oximetry 91 92 94 05/04/20 10:17 05/04/20 12:40 Temperature 96.8 F L Pulse Rate 91 H 93 H Respiratory Rate 18 Blood Pressure 172/89 H 175/95 H Pulse Oximetry 97 95 Oxygen Delivery Method Nasal Cannula Oxygen Flow Rate 2 Narrative Exam Narrative: Pleasant elderly female lying in bed mildly short of breath HEENT: Normocephalic atraumatic, extraocular muscles are intact, oropharynx is clear, neck is supple without adenopathy Lungs: Diffuse wheezing on inspiratory and expiratory inhalation exhalation, no rhonchi or crackles noted Cardiac exam: Regular rate and rhythm normal S1-S2 Abdomen: Soft nondistended nontender without hepatosplenomegaly Extremities: No edema Neuro exam: Nonfocal Objective Labs Result Diagrams: 05/04/20 06:00 05/04/20 06:00 Labs: Laboratory Results - last 24 hr 05/04/20 05/04/20 05/04/20 06:00 06:00 06:00 WBC 10.3 RBC 4.62 Hgb 13.1 Hct 40.6 MCV 87.8 MCH 28.3 MCHC 32.2 RDW 12.6 Plt Count 438 H Neut % (Auto) 68.8 Lymph % (Auto) 14.6 L [place] % (Auto) 6.9 Eos % (Auto) 9.3 H Baso % (Auto) 0.4 Neut # (Auto) 7100 H Lymph # (Auto) 1500 [place] # (Auto) 700 Eos # (Auto) 1000 H Baso # (Auto) 0 D-Dimer Sodium 139 Potassium 3.6 Chloride 101 Carbon Dioxide 35 H BUN 18 H Creatinine 1.05 H Estimated GFR 50.3 L BUN/Creatinine Ratio 17.1 Glucose 111 H Calcium 9.4 Total Creatine Kinase CK-MB (CK-2) CK-MB (CK-2) Rel Index Troponin I NT-Pro-B Natriuret Pep Procalcitonin < 0.05 Chlamy pneumoniae PCR Adenovirus (PCR) B.parapertussis DNA PCR Coronavirus OC43 (PCR) Coronavirus HKU1 (PCR) Coronavirus 229E (PCR) SARS-CoV-2 (PCR) Coronavirus NL63 (PCR) Human Metapneumovir PCR Influenza Type A (PCR) Influenza Type B (PCR) M. pneumoniae (PCR) Parainfluenza 1 (PCR) Parainfluenza 2 (PCR) Parainfluenza 3 (PCR) Parainfluenza 4 (PCR) RSV (PCR) Entero/Rhino (PCR) 05/04/20 05/04/20 05/04/20 06:13 08:55 08:55 WBC RBC Hgb Hct MCV MCH MCHC RDW Plt Count Neut % (Auto) Lymph % (Auto) [place] % (Auto) Eos % (Auto) Baso % (Auto) Neut # (Auto) Lymph # (Auto) [place] # (Auto) Eos # (Auto) Baso # (Auto) D-Dimer 351 H Sodium Potassium Chloride Carbon Dioxide BUN Creatinine Estimated GFR BUN/Creatinine Ratio Glucose Calcium Total Creatine Kinase 45 CK-MB (CK-2) TNP CK-MB (CK-2) Rel Index TNP Troponin I < 0.012 NT-Pro-B Natriuret Pep 379 Procalcitonin Chlamy pneumoniae PCR Adenovirus (PCR) B.parapertussis DNA PCR Coronavirus OC43 (PCR) Coronavirus HKU1 (PCR) Coronavirus 229E (PCR) SARS-CoV-2 (PCR) Negative Coronavirus NL63 (PCR) Human Metapneumovir PCR Influenza Type A (PCR) Influenza Type B (PCR) M. pneumoniae (PCR) Parainfluenza 1 (PCR) Parainfluenza 2 (PCR) Parainfluenza 3 (PCR) Parainfluenza 4 (PCR) RSV (PCR) Entero/Rhino (PCR) 05/04/20 11:18 WBC RBC Hgb Hct MCV MCH MCHC RDW Plt Count Neut % (Auto) Lymph % (Auto) [place] % (Auto) Eos % (Auto) Baso % (Auto) Neut # (Auto) Lymph # (Auto) [place] # (Auto) Eos # (Auto) Baso # (Auto) D-Dimer Sodium Potassium Chloride Carbon Dioxide BUN Creatinine Estimated GFR BUN/Creatinine Ratio Glucose Calcium Total Creatine Kinase CK-MB (CK-2) CK-MB (CK-2) Rel Index Troponin I NT-Pro-B Natriuret Pep Procalcitonin Chlamy pneumoniae PCR Not detected Adenovirus (PCR) Not detected B.parapertussis DNA PCR Not detected Coronavirus OC43 (PCR) Not detected Coronavirus HKU1 (PCR) Not detected Coronavirus 229E (PCR) Not detected SARS-CoV-2 (PCR) Not detected Coronavirus NL63 (PCR) Not detected Human Metapneumovir PCR Not detected Influenza Type A (PCR) Not detected Influenza Type B (PCR) Not detected M. pneumoniae (PCR) Not detected Parainfluenza 1 (PCR) Not detected Parainfluenza 2 (PCR) Not detected Parainfluenza 3 (PCR) Not detected Parainfluenza 4 (PCR) Not detected RSV (PCR) Not detected Entero/Rhino (PCR) Not detected Assessment & Plan Assessment & Plan narrative: 1. 80-year-old female with a history of COPD admitted to the hospital for acute hypoxic respiratory failure -patient has had progressive symptoms over the past week, she is hypoxic at rest -CT scan confirms bilateral lower lobe mucous plugging which likely is chronic -no infiltrates identified -will continue the patient on albuterol Atrovent inhaler -will start a steroid inhaler -will place the patient on 5 days of levofloxacin -will continue prednisone for 5 days as well -will continue Oxygen with a goal to taper her back to no oxygen prior to discharge -patient has received flu shot this year, and also a pneumonia shot sometime ago -she his [id number] negative, respiratory panel negative as well. 2. Hyperlipidemia -will continue statin 3. Hypothyroidism -continue L-thyroxine 4. Weight loss -concern 1st protein calorie malnutrition -patient reports 10 lb weight over the past few weeks -will obtain dietary consultation Patient is a full code will note that her record accordingly She reports a surrogate decision maker although she is unclear whether her durable power erisa attorney for healthcare has them listed Patient id has no immediate family in the area.
[2020-05-04] MEDS: DEXTROSE 5%-0.45% NS 1,000 ML 100 ML IV (15:32)
[2020-05-04] MEDS: methylPREDNISolone 125 MG/2 ML VIAL 60 MG IV ×2 (15:32→21:38)
[2020-05-04] MEDS: ENOXAPARIN 40 MG/0.4 ML SYRINGE SUBCUT (15:33)
[2020-05-04] MEDS: FLUTICASONE/SALMETEROL 250/50 60 PUFF DISKUS INH (18:10)
[2020-05-04] MEDS: DOCUSATE 100 MG CAPSULE PO (21:38)
[2020-05-04] MEDS: PRAVASTATIN 20 MG TABLET PO (21:39)
[2020-05-04] MEDS: DOXYCYCLINE HYCLATE 100 MG TABLET PO (21:39)
[2020-05-05] VITALS (11 sets, daily range): BP systolic 148–161; BP diastolic 81–87; PULSE 70–99; RESP 16–23; TEMP 36.2–37.3; O2SAT 91–95
[2020-05-05] MEDS: ALBUTEROL/IPRATROPIUM 3 ML AMPUL INH ×4 (00:48→18:49)
[2020-05-05] MEDS: DEXTROSE 5%-0.45% NS 1,000 ML 100 ML IV (01:56)
--- NOTE | 2020-05-05 02:03 | PC.NURSE ---
Oxygen saturation 89-90% at 2LPM via NC. Increased to 2.5LPM. Oxygen saturation still at 90%. There are two orders that conflict each other. One states she is to be on Oxygen Supplementation 2LPM via NC. Another order states to keep her O2 saturation above 92%. I have only increased the oxygen supplementation to 2.5LPM. No s/sx of distress.
[2020-05-05] MEDS: LEVOTHYROXINE 112 MCG TABLET PO (05:40)
[2020-05-05] MEDS: methylPREDNISolone 125 MG/2 ML VIAL 60 MG IV ×3 (05:40→21:13)
[2020-05-05] MEDS: FLUTICASONE/SALMETEROL 250/50 60 PUFF DISKUS INH ×2 (07:38→18:49)
[2020-05-05] MEDS: DOXYCYCLINE HYCLATE 100 MG TABLET PO ×2 (09:58→21:13)
[2020-05-05] MEDS: ENOXAPARIN 40 MG/0.4 ML SYRINGE SUBCUT (09:58)
[2020-05-05] MEDS: DOCUSATE 100 MG CAPSULE PO ×2 (09:58→21:11)
--- NOTE | 2020-05-05 10:35 | PM.PN.1 ---
Subjective Subjective Date Patient Seen: 05/05/20 Interval history: The patient is an 80-year-old female with a history of COPD/asthma, hypothyroidism, hyperlipidemia who presented to the hospital with increasing shortness of breath, wheezing and hypoxia. The patient reports she feels somewhat better however she continues to be short of breath. A peak flow was 100 before and after bronchodilators. She continues to have significant wheezing. She continues to be short of breath. Exam Vital Signs (past 8 hours): - 05/05/20 05:33 05/05/20 07:38 05/05/20 07:58 Temperature 97.2 F L 98.0 F Pulse Rate 81 81 82 Respiratory Rate 16 16 18 Blood Pressure 149/82 H 152/84 H Pulse Oximetry 92 91 91 Oxygen Delivery Method Nasal Cannula Oxygen Flow Rate 2 Narrative Exam Narrative: Pleasant female ill-appearing still short of breath Lungs: Diffuse wheezing and scattered rhonchi bilaterally Cardiac exam: Regular rate and rhythm normal S1-S2 with a 2/6 systolic ejection murmur Abdomen: Soft nontender nondistended Extremities: No edema Objective Labs Result Diagrams: 05/04/20 06:00 05/04/20 06:00 Labs: Laboratory Results - last 24 hr 05/04/20 11:18 Chlamy pneumoniae PCR Not detected Adenovirus (PCR) Not detected B.parapertussis DNA PCR Not detected Coronavirus OC43 (PCR) Not detected Coronavirus HKU1 (PCR) Not detected Coronavirus 229E (PCR) Not detected SARS-CoV-2 (PCR) Not detected Coronavirus NL63 (PCR) Not detected Human Metapneumovir PCR Not detected Influenza Type A (PCR) Not detected Influenza Type B (PCR) Not detected M. pneumoniae (PCR) Not detected Parainfluenza 1 (PCR) Not detected Parainfluenza 2 (PCR) Not detected Parainfluenza 3 (PCR) Not detected Parainfluenza 4 (PCR) Not detected RSV (PCR) Not detected Entero/Rhino (PCR) Not detected PFSH Medical History Breast cancer (1990) Chicken pox COPD (chronic obstructive pulmonary disease) Hypothyroidism Measles Osteoporosis Whooping cough Surgical History Cataract extraction status of right eye Cataract extraction status, left eye Status post breast lumpectomy (1990) Family History Father Ulcer Mother Alzheimer's disease Sister Gallbladder disease Grandfather Kidney disease Grandmother complication Grandfather Stroke Grandmother Heart attack Social History household members: spouse Smoking Status: Never smoker alcohol intake: current substance use type: does not use Assessment & Plan Assessment & Plan narrative: 1. Acute hypoxic respiratory failure -likely related to chronic bronchitis based on CT findings which shows bilateral mucous plugging in the bases -patient continues to be bronchospastic with wheezing and rhonchi -her peak flow has not improved, currently 100 -no evidence of pneumonia -plan is to continue doxycycline, steroids, oxygen, and inhalers -a vast RT to consider and start chest PT given mucous plugging seen on CT scan 2. Hyperlipidemia -continue statin 3. Hypothyroidism -continue L-thyroxine DVT prophylaxis, will continue Lovenox Anticipate the patient will be discharged home when she is no longer hypoxic and her peak flow has improved significantly Quality VTE Deep Vein Thrombosis/Pulmonary Embolism Present on Admission: No
--- NOTE | 2020-05-05 13:00 | CM.DPC ---
DCP/Assessment: Reviewed chart. Patient is a 80yr old female admitted to I. with SOB. Primary payor is 1)Medicare. PCP is Dr. Potter. Met with patient explained CM/SW role. Patient currently resting comfortably requiring 2 liters 02. Patient reports that prior to admit she was primarily I in ADL's. Patient indicates that Asthma/COPD symptoms have gradually gotten worse over the last year. Patient resides alone in [place]. Patient currently with PT evaluation pending. Patient reports that she would like information on how to go about changing her PCP. Patient inquiring about using the same group but obtaining female. Patient reports that herself and Dr. Potter do not communicate well. MACHINE QUILT STUFFER encouraged patient to f/u with group to schedule appointment with different provider. Patient agreeable and reports understanding. Patient agreeable to either SNF or Home with HH if recommended. At this time patient believes that SNF might be more appropriate? First SNF choice is [facility]. Will follow up after therapy evaluation completed. P: Anticipate SNF vs. Home with HH pending progress. Patient inpatient status as of 05-04-20. ARASH Lara Discharge Planning/Care Management CM Discharge Assessment Start: 05/05/20 12:49 Freq: Status: Active Protocol: Document 05/05/20 12:49 KJS (Rec: 05/05/20 13:00 KJS [id number]) Discharge Planning Assessment Assigned Lead Die Molder ARASH Lara Contact Information [place] [place] (family) ph# Advance Directives? No History Provided By Patient,Medical Record Prior Living Arrangements House Household Members spouse Type of transporation used prior to Drives own vehicle admit Comment Prior to admit and patient feeling sick patient does did drive. Independent with ADL's Therapy evaluation pending. Is patient alert and oriented? Yes Caregiver for Another No DME Already Rented / Owned Nebulizer Comment Patient agreeable to SNF and/ or HH if recommended. Barriers to Discharge No Transportation Arrangement Patient reports if she goes home she would like taxi. SNF/HH Preference [facility] Has Agency SNF been contacted No Comment Awaiting PT evaluation Whiteboard Updated in Patient Room with Yes name and ext. # of Lead Die Molder Review Status In Process Next Review Type Continued Stay Review
--- NOTE | 2020-05-05 15:55 | PC.NURSE ---
Resp: Pt reports she is breathing better. Still has ins and exp wheezing heard but it is softer, less use of accessory muscles. O2 at 2L for comfort, sats are 92-94%. Trial of ra and sats were 88-91%. O2 was reapplied. Likes to keep hob elevated. Steroids have made her very shaky and it's hard for her to rest. Over all she does feel better. Cont w/poc.
--- NOTE | 2020-05-05 16:25 | PT.IIE ---
Current Diagnoses Acute respiratory failure with hypoxia (05/04/20) Surgical History (Last Reviewed 05/04/20 @ 13:56 by Kalina Leal MD) Cataract extraction status of right eye Cataract extraction status, left eye Status post breast lumpectomy (1990) Medical History (Last Reviewed 05/04/20 @ 13:56 by Kalina Leal MD) Breast cancer (1990) Chicken pox COPD (chronic obstructive pulmonary disease) Hypothyroidism Measles Osteoporosis Whooping cough Physical Therapy Inpatient Evaluation/Re-Eval M1 PT/OT-IP Prior Functional Status Start: 05/05/20 10:09 Freq: NEEDED Status: Active Protocol: Document 05/05/20 16:25 AW (Rec: 05/05/20 16:51 AW [id number]) Medical Review Prior Functional Status Medical History Reviewed Yes Communication WNL. Pt is an effective verbal communicator. Mobility and Gait Independent without device and without meaningful limit. Pt states she does use B trekking poles for day hikes with [place]. Activities of Daily Living and IADL's Independent with all I/ADL's. Pt drives and has been doing her own shopping or using [employer] for groceries. Prior Functional Level (Other details) Pt does not use O2 at home. Social History Household Members none Living Arrangements House Number of Floors (Floors) Two Floors Number of Stairs To Enter/Railing? 1STE with post to hold on to. Pt states all needs are located on data entry. She has a painting studio upstairs but has only occasional need to access it. Home Environment Standard Height Toilet,Tub/ Shower Home Equipment Grab Bars In Shower Employment Status Retired Additional Social History Comment Pt lives alone in [place]. She states that she has supportive neighbors but she has largely avoided interacting with them due to COVID concerns. M2 PT-IP Current Condition Start: 05/05/20 10:09 Freq: NEEDED Status: Active Protocol: Document 05/05/20 16:25 AW (Rec: 05/05/20 16:51 AW [id number]) Physical Therapy Current Condition Current Condition Evaluation Date 05/05/20 Treatment Diagnosis acute hypoxic resp failure; impaired mobility and gait. Onset Date 05/04/20 Precautions Other Precautions history of breast cancer M3 PT-IP Subjective Start: 05/05/20 10:09 Freq: NEEDED Status: Active Protocol: Document 05/05/20 16:25 AW (Rec: 05/05/20 16:51 AW [id number]) Subjective Physical Therapy Visit Type Type Initial Evaluation Visit Start Time 16:03 Visit Stop Time 16:23 Total Visit Minutes 20 Physical Therapy Visit Comments Patient Comments Physical therapy already? Patient Goals Pt is amenable to rehab options including SNF or HH. Therapy Pain Assessment Pain When Pain Assessed During Mobility Pain Present Pain Present Denied Pain M4 PT-IP Mobility and Gait Start: 05/05/20 10:09 Freq: NEEDED Status: Active Protocol: Document 05/05/20 16:25 AW (Rec: 05/05/20 16:51 AW [id number]) PT-Bed Mobility Assessment Supine to Sit Supine to Sit Contact Guard Assistance, Bedrails Scooting Scooting to Edge of Bed Standby Assistance Scooting Up and Down in Bed Standby Assistance PT-Transfer Assessment Sit to and From Stand Sit to and from Stand Minimal Assistance,1 Person Assistance,Use of Upper Extremities Equipment Transfer Assistive Device None,Gait Belt Orthotic/Prosthetic Devices or Brace: No Transfers Transfer Destination Chair Transfer Technique Stand Step Pivot Transfer Ability Level of Assist Contact Guard Assistance,1 Person Assistance,Use of Upper Extremities Comments Mobility Comments Pt was reclined in the bed as PT arrived. BP was 152/87 HR 95 and SpO2 93% on 2L/min via NC. She completed supine to sit CGA with use of bedrails and sat EOB with and without UE support. PT removed NC for ambulation trial. Pt stood from the bed in lowest position min A x 1 due to initial unsteadiness. She ambulated around the bed, immediately and frequently reaching for the bed and other surfaces to steady herself. She walked to the window, stopped for a rest break, and then transferred to the chair CGA. Pt was SOB with mildly audible wheezing. SpO2 was 85% on room air. O2 was reapplied immediately and SpO2 brayan back to 91% within one minute. Pt was positioned on the chair with call light and all needs in reach, warm blankets provided. Pt agreed to use the call leal for all mobility needs. Gait Assessment Gait Gait Assistance Required: Contact Guard Assist Distance (Feet) 25 Assistive Devices Assistive Device None,Gait Belt Orthotic/Prosthetic Devices or Brace: No Gait Deviations General Gait Pattern Antalgic,Decreased Stride Length,Decreased Feet Clearance,Flexed Trunk,Lateral Trunk Lean,Narrow Based Gait Factors Limiting Gait Function Factors Limiting Gait Function Decreased Activity Tolerance, Decreased Strength,Poor Balance,Respiratory Distress Comments Gait Comments See mobility comments for details. Pt had no reserve to trial FWW or other AD but agreed to try one tomorrow. Pt stated the meds make me jittery and my normal good balance is gone. Stair Climbing Assessment Comments Stair Climbing Comments Not assessed. PT-Balance Assessment Sitting Balance and Reactions Static Sitting Balance Ability Good Dynamic Sitting Balance Ability Good Standing Balance and Reactions Static Standing Balance Ability Fair Dynamic Standing Balance Ability Poor Device Used no AD M5 PT-IP Objective Assessments Start: 05/05/20 10:09 Freq: NEEDED Status: Active Protocol: Document 05/05/20 16:25 AW (Rec: 05/05/20 16:51 AW [id number]) Orientation Orientation/Cognition Level of Alertness Alert Orientation Name,Day of Week,Place, Situation Language Function Ability No Deficits Noted Safety Awareness Understands Safety Issues Memory Description No Deficits Noted Gross Range of Motion Lower Extremity ROM Assessment Within Functional Limits Strength Lower Extremity Strength Assessment Bilaterally Impaired Comments Strength Comments BLE grossly 4/5 Sensation Assessment Sensation Gross Sensation WNL M6 PT-IP Treatment Start: 05/05/20 10:09 Freq: NEEDED Status: Active Protocol: Document 05/05/20 16:25 AW (Rec: 05/05/20 16:51 AW [id number]) Physical Therapy Treatment Education Education Provided Safety Other Treatments Other Treatment Performed Provided education on role of PT, plan of care, rationale for an assistive device, and subacute rehab options. M7 PT-IP Assessment and Plan Start: 05/05/20 10:09 Freq: NEEDED Status: Active Protocol: Document 05/05/20 16:25 AW (Rec: 05/05/20 16:51 AW [id number]) PT Summary Assessment and Plan Potential Rehabilitation Potential Good Status of Condition at Evaluation Evolving Summary Impairments Strength,Balance,Bed Mobility, Transfers,Gait,Activity Tolerance Assessment Summary Graciela is an active 80 yo woman seen for PT evaluation with admitting diagnosis of acute hypoxic respiratory failure. She does not use O2 at home. She lives alone and is typically independent in all regards. On evaluation, pt required CGA to min assist for most mobilities, presenting with impaired strength, activity tolerance and balance affecting safety in gait. Pt was too fatigued and in respiratory distress after short ambulation trial to attempt mobility with an AD but agreed to try one tomorrow. She reports feeling as if she is currently operating with <10% of her normal functional reserve. In the context of extreme debility compared with baseline function, PT recommends SNF rehab if pt is unable to significantly progress during hospital stay. If pt does progress or declines SNF rehab, she would benefit from HH therapy. Goals Bed Mobility Goal Independent Transfer Goal Independent,Front Wheeled Walker Gait Goal Independent,Front Wheel Walker Gait Distance 200 Other Goals - up/down one step with unilateral rail SBA - progress gait to 100 feet with LRAD or no AD IND Days to Meet Goals 8 Frequency of Treatment Frequency Of Treatment Once a Day Treatment Plan Physical Therapy Treatment Plan Bed Mobility Training,Transfer Training,Gait Training, Therapeutic Exercise,Balance Retraining,Discharge Planning, Hot or Cold Pack,Neuromuscular Re-ed Other Recommendations and Next Treatment mobility as tolerated; ask RN Focus about appropriateness of room air trial; monitor VS Recommendations To Nursing Amount of Assist Needed 1 Person Assist Discharge Recommendations PT Discharge Recommendations Home with Assistance,Home Health,SNF Rehab Other Discharge Recommendations SNF vs home with assist and HH depending on progress Equipment Needed for Home Before may need assistive device if Discharge going home Transportation Needs at Discharge Private Vehicle,Wheelchair/ Cabulance
[2020-05-05 18:25] LABS: TSH w/ Reflex to FT4 0.97 uIU/mL (0.47-4.68)
[2020-05-05] MEDS: MONTELUKAST 10 MG TABLET PO (21:12)
[2020-05-05] MEDS: PRAVASTATIN 20 MG TABLET PO (21:13)
[2020-05-06] VITALS (9 sets, daily range): BP systolic 143–158; BP diastolic 83–92; PULSE 78–93; RESP 16–20; TEMP 36.8–37.2; O2SAT 91–95
[2020-05-06] MEDS: methylPREDNISolone 125 MG/2 ML VIAL 60 MG IV ×3 (05:48→22:06)
[2020-05-06] MEDS: LEVOTHYROXINE 112 MCG TABLET PO (05:48)
[2020-05-06] MEDS: ALBUTEROL/IPRATROPIUM 3 ML AMPUL INH ×3 (06:08→19:16)
[2020-05-06] MEDS: FLUTICASONE/SALMETEROL 250/50 60 PUFF DISKUS INH ×2 (06:09→19:16)
[2020-05-06] MEDS: DOCUSATE 100 MG CAPSULE PO ×2 (09:15→21:25)
[2020-05-06] MEDS: ENOXAPARIN 40 MG/0.4 ML SYRINGE SUBCUT (09:15)
[2020-05-06] MEDS: DOXYCYCLINE HYCLATE 100 MG TABLET PO ×2 (09:15→21:25)
[2020-05-06] MEDS: guaiFENesin ER 600 MG TAB 1200 MG PO ×2 (09:33→21:25)
--- NOTE | 2020-05-06 09:57 | PM.PN.1 ---
Subjective Subjective Date Patient Seen: 05/06/20 Interval history: Patient is a 80-year-old female with history of COPD/asthma admitted with increased dyspnea, wheezing and hypoxia. CTA showed mucus plugging without pneumonia. Patient endorses shortness of breath and remains on 2 L O2. Exam Vital Signs (past 8 hours): - 05/06/20 03:30 05/06/20 06:09 05/06/20 07:36 Temperature 98.5 F 98.3 F Pulse Rate 82 81 85 Respiratory Rate 16 16 16 Blood Pressure 158/84 H 154/90 H Pulse Oximetry 93 94 95 Oxygen Delivery Method Nasal Cannula Oxygen Flow Rate 2 Narrative Exam Narrative: General: Alert, NAD Lungs: Breathing nonlabored at rest, even bilateral breath sounds with minimal right lung wheeze Heart: Regular rhythm Abdomen: Soft Extremities: No edema Objective Labs Result Diagrams: 05/04/20 06:00 05/04/20 06:00 Labs: Laboratory Results - last 24 hr 05/05/20 06:00 TSH 0.97 PFSH Medical History Breast cancer (1990) Chicken pox COPD (chronic obstructive pulmonary disease) Hypothyroidism Measles Osteoporosis Whooping cough Surgical History Cataract extraction status of right eye Cataract extraction status, left eye Status post breast lumpectomy (1990) Family History Father Ulcer Mother Alzheimer's disease Sister Gallbladder disease Grandfather Kidney disease Grandmother complication Grandfather Stroke Grandmother Heart attack Social History household members: none Smoking Status: Never smoker alcohol intake: current substance use type: does not use Assessment & Plan Assessment & Plan narrative: Patient is 80-year-old female with history of COPD/asthma presented with shortness of breath, wheeze and hypoxia. 1. Acute hypoxic respiratory failure -likely secondary to COPD exacerbation with mucus plugging noted on CTA -peak flow 90 this a.m., unchanged -Continue steroids, nebulizers, doxycycline -added guaifenesin 1200 mg b.i.d. -continue RT eval 2. Hyperlipidemia -continue statin 3. Hypothyroidism -continue levothyroxine DVT prophylaxis: Lovenox Patient needs additional inpatient day. She is weak and PT recommending [facility] rehab. Likely discharge tomorrow, Wednesday. Quality VTE Deep Vein Thrombosis/Pulmonary Embolism Present on Admission: No
--- NOTE | 2020-05-06 12:23 | PT.IPTN ---
Current Diagnoses Acute respiratory failure with hypoxia (05/04/20) Physical Therapy Treatment Note M2 PT-IP Current Condition Start: 05/05/20 10:09 Freq: NEEDED Status: Active Protocol: Document 05/05/20 16:25 AW (Rec: 05/05/20 16:51 AW [id number]) Physical Therapy Current Condition Current Condition Evaluation Date 05/05/20 Treatment Diagnosis acute hypoxic resp failure; impaired mobility and gait. Onset Date 05/04/20 Precautions Other Precautions history of breast cancer M3 PT-IP Subjective Start: 05/05/20 10:09 Freq: NEEDED Status: Active Protocol: Document 05/06/20 12:14 AW (Rec: 05/06/20 12:23 AW [id number]) Subjective Physical Therapy Visit Type Type Treatment Note Visit Start Time 11:33 Visit Stop Time 11:48 Total Visit Minutes 15 Number of SNOWBOARD DESIGNER Visits 0 Physical Therapy Visit Comments Patient Comments Pt is willing to participate with PT Therapy Pain Assessment Pain When Pain Assessed During Mobility Pain Present Pain Present Denied Pain M4 PT-IP Mobility and Gait Start: 05/05/20 10:09 Freq: NEEDED Status: Active Protocol: Document 05/06/20 12:14 AW (Rec: 05/06/20 12:23 AW [id number]) PT-Bed Mobility Assessment Supine to Sit Supine to Sit Contact Guard Assistance Scooting Scooting to Edge of Bed Standby Assistance PT-Transfer Assessment Sit to and From Stand Sit to and from Stand Contact Guard Assistance,1 Person Assistance,Use of Upper Extremities Equipment Transfer Assistive Device Gait Belt,Front Wheeled Walker Orthotic/Prosthetic Devices or Brace: No Transfers Transfer Destination Chair Transfer Technique Stand Step Pivot Transfer Ability Level of Assist Contact Guard Assistance,1 Person Assistance,Use of Upper Extremities Comments Mobility Comments Pt was lying in bed as PT arrived. SpO2 was 91% on 2L/ min via NC. She agreed to get up and mobilize with PT, completing supine to sit CGA. She stood from the bed in lowest position and used FWW to ambulate a total of 60 feet with portable O2 flow rate 2L /min. She ambulated very slowly with CGA and maintained SpO2 90% throughout ambulation trial. On return to the room, she transferred to the chair CGA. She was left with call light and all needs in reach. She agreed to call for mobility assist. Gait Assessment Gait Gait Assistance Required: Contact Guard Assist Distance (Feet) 60 Assistive Devices Assistive Device Gait Belt,Front Wheeled Walker Gait Deviations General Gait Pattern Antalgic,Decreased Stride Length,Decreased Feet Clearance,Flexed Trunk,Lateral Trunk Lean,Narrow Based Gait Factors Limiting Gait Function Factors Limiting Gait Function Decreased Activity Tolerance, Decreased Strength,Poor Balance,Respiratory Distress Comments Gait Comments Pt improved stability and endurance with FWW but continued to require CGA and showed limited activity tolerance. Stair Climbing Assessment Comments Stair Climbing Comments Not assessed. PT-Balance Assessment Sitting Balance and Reactions Static Sitting Balance Ability Good Dynamic Sitting Balance Ability Good Standing Balance and Reactions Static Standing Balance Ability Fair Dynamic Standing Balance Ability Fair Device Used FWW M5 PT-IP Objective Assessments Start: 05/05/20 10:09 Freq: NEEDED Status: Active Protocol: Document 05/05/20 16:25 AW (Rec: 05/05/20 16:51 AW [id number]) Orientation Orientation/Cognition Level of Alertness Alert Orientation Name,Day of Week,Place, Situation Language Function Ability No Deficits Noted Safety Awareness Understands Safety Issues Memory Description No Deficits Noted Gross Range of Motion Lower Extremity ROM Assessment Within Functional Limits Strength Lower Extremity Strength Assessment Bilaterally Impaired Comments Strength Comments BLE grossly 4/5 Sensation Assessment Sensation Gross Sensation WNL M6 PT-IP Treatment Start: 05/05/20 10:09 Freq: NEEDED Status: Active Protocol: Document 05/06/20 12:14 AW (Rec: 05/06/20 12:23 AW [id number]) Physical Therapy Treatment Education Education Provided Safety M7 PT-IP Assessment and Plan Start: 05/05/20 10:09 Freq: NEEDED Status: Active Protocol: Document 05/06/20 12:14 AW (Rec: 05/06/20 12:23 AW [id number]) PT Summary Assessment and Plan Summary Impairments Strength,Balance,Bed Mobility, Transfers,Gait,Activity Tolerance Progress Towards Goals Slow Progress due to Activity Tolerance Assessment Summary Graciela was able to tolerate increase in activity today but remains significantly debilitated compared with baseline function. She maintained SpO2 ~90% during ambulation this date with portable O2 at 2L/min. Pt remains an excellent candidate for SNF rehab to address strength and endurance deficits. Goals Bed Mobility Goal Independent Transfer Goal Independent,Front Wheeled Walker Gait Goal Independent,Front Wheel Walker Gait Distance 200 Other Goals - up/down one step with unilateral rail SBA - progress gait to 100 feet with LRAD or no AD IND Days to Meet Goals 8 Frequency of Treatment Frequency Of Treatment Once a Day Treatment Plan Physical Therapy Treatment Plan Bed Mobility Training,Transfer Training,Gait Training, Therapeutic Exercise,Balance Retraining,Discharge Planning, Hot or Cold Pack,Neuromuscular Re-ed Other Recommendations and Next Treatment mobility as tolerated; ask RN Focus about appropriateness of room air trial; monitor VS Recommendations To Nursing Amount of Assist Needed Standby Assistance Discharge Recommendations PT Discharge Recommendations SNF Rehab Equipment Needed for Home Before defer to rehab setting Discharge Transportation Needs at Discharge Wheelchair/Cabulance
--- NOTE | 2020-05-06 12:28 | DIET.PN ---
Dietary Progress Note Assessment: Ms. Phelps is an 80-year-old female with a history of COPD, hypothyroidism, who presents to the hospital for increasing shortness of breath. Patient reports her symptoms have been coming along for some time. She received an inhaler 6 weeks ago and noted her breathing felt better initially. However over the past week she has been increasingly short of breath and had associated cough. She reports low appetite with unintentional weight loss over the past few months. Usual intake includes chicken, salmon, sardines, cottage cheese w/ canned peaches, apples, carrots, kale, broccoli cooked w/ rice. She does her own shopping at the market. HT: 162.56cm WT: 48.5kg UBW: 53.2kg (02/2020) BMI: 18.4 Labs: CO2: 35; BUN: 18; Cr: 1.05; eGFR: 50.3 MNA: 11 Abdoulaye: 20 Nutrition Diagnosis: Chronic severe PCM r/t physiological causes increasing nutrient needs due to illness aeb pt report energy intake <75% EER > 1mo, weight loss 9% in 3 mo per EMR, BMI <21 (age >65), physical observation subcutaneous fat loss, hx of COPD w/ resp failure. Interventions: 1. Discussed PO intake and importance of protein/calorie dense foods with each meal. 2. Discussed ONS ensure if PO's <70%. Pt agreeable. 3. Reviewed heart healthy nutrition therapy including reduced sodium (<2g) and heart healthy fats. Diet Order: heart healthy EER: 1450 melanie (30cal/kg underweight); Pro 60-68g (1.2-1.4 elderly malnutrition) Monitoring/Evaluations: Weight, PO's, need for ONS
--- NOTE | 2020-05-06 13:15 | PC.NURSE ---
Day shift: Pt still requiring 2L NC to maintain Spo2 >90%. Ambulated in halls w/ PT and toleated well but required O2 via NC. Pt stated I feel better brathing when I'm sitting in this chair. Denies any nausea or constipation. Also denies any chest pain. Makes needs known proper w/ call light. Will continue w/ plan of care. Call light in reach.
--- NOTE | 2020-05-06 16:28 | CM.DPC ---
DCP Cont: COMMISSION SALES ASSOCIATE and [employer]ISS[employer] SALES ASSOCIATE Student met with patient she was sitting in chair alert and oriented. She confirmed she is still in agreement to be discharged to [facility]. [facility] is currently reviewing patients file for admit. ARASH Lara, COMMISSION SALES ASSOCIATE Student
[2020-05-06] MEDS: MONTELUKAST 10 MG TABLET PO (21:25)
[2020-05-06] MEDS: PRAVASTATIN 20 MG TABLET PO (21:26)
[2020-05-06] MEDS: SODIUM CHLORIDE 0.9% FLUSH 10 ML IV (21:26)
[2020-05-07] VITALS (7 sets, daily range): BP systolic 143–152; BP diastolic 80–89; PULSE 71–93; RESP 14–18; TEMP 36.6–36.8; O2SAT 92–95
[2020-05-07] MEDS: ALBUTEROL/IPRATROPIUM 3 ML AMPUL INH ×3 (00:18→14:15)
[2020-05-07] MEDS: methylPREDNISolone 125 MG/2 ML VIAL 60 MG IV (05:43)
[2020-05-07] MEDS: LEVOTHYROXINE 112 MCG TABLET PO (05:43)
[2020-05-07] MEDS: FLUTICASONE/SALMETEROL 250/50 60 PUFF DISKUS INH (05:55)
[2020-05-07] MEDS: SODIUM CHLORIDE 0.9% FLUSH 10 ML IV (09:16)
[2020-05-07] MEDS: ENOXAPARIN 40 MG/0.4 ML SYRINGE SUBCUT (09:16)
[2020-05-07] MEDS: DOCUSATE 100 MG CAPSULE PO (09:16)
[2020-05-07] MEDS: DOXYCYCLINE HYCLATE 100 MG TABLET PO (09:16)
[2020-05-07] MEDS: guaiFENesin ER 600 MG TAB 1200 MG PO (09:16)
--- NOTE | 2020-05-07 10:28 | CM.DPNOTE ---
Faxed med list, order and clinicals to [facility] per Rebekah on 05/07/20. Received fax confirmation. Penny Aquino CM Asst.
--- NOTE | 2020-05-07 11:20 | PT.IPTN ---
Current Diagnoses Acute respiratory failure with hypoxia (05/04/20) Physical Therapy Treatment Note M2 PT-IP Current Condition Start: 05/05/20 10:09 Freq: NEEDED Status: Active Protocol: Document 05/05/20 16:25 AW (Rec: 05/05/20 16:51 AW [id number]) Physical Therapy Current Condition Current Condition Evaluation Date 05/05/20 Treatment Diagnosis acute hypoxic resp failure; impaired mobility and gait. Onset Date 05/04/20 Precautions Other Precautions history of breast cancer M3 PT-IP Subjective Start: 05/05/20 10:09 Freq: NEEDED Status: Active Protocol: Document 05/07/20 11:00 AW (Rec: 05/07/20 11:19 AW [id number]) Subjective Physical Therapy Visit Type Type Treatment Note Visit Start Time 10:15 Visit Stop Time 10:31 Total Visit Minutes 16 Number of SCALE OPERATOR Visits 0 Physical Therapy Visit Comments Patient Comments Pt is willing to participate with PT Therapy Pain Assessment Pain When Pain Assessed During Mobility Pain Present Pain Present Denied Pain M4 PT-IP Mobility and Gait Start: 05/05/20 10:09 Freq: NEEDED Status: Active Protocol: Document 05/07/20 11:00 AW (Rec: 05/07/20 11:19 AW [id number]) PT-Bed Mobility Assessment Supine to Sit Supine to Sit Standby Assistance Scooting Scooting to Edge of Bed Standby Assistance PT-Transfer Assessment Sit to and From Stand Sit to and from Stand Contact Guard Assistance,1 Person Assistance,Use of Upper Extremities Equipment Transfer Assistive Device Gait Belt,Front Wheeled Walker Transfers Transfer Destination Chair Transfer Technique Stand Step Pivot Transfer Ability Level of Assist Standby Assistance,Use of Upper Extremities Comments Mobility Comments Pt was reclined in bed as PT arrived. SpO2 on room air was 91%. She sat up on the bed and then stood CGA with immediate increase in respiratory rate. Instructed pt in PLB as pt began to ambulate in the halls a total of 150 feet with FWW SBA. She needed three rest breaks. SpO2 remained 90-91% throughout. On return to the room, pt transferred to the chair SBA and reported being too tired for further activity . Pt was positioned with call light and all needs in reach. Gait Assessment Gait Gait Assistance Required: Standby Assistance Distance (Feet) 150 Assistive Devices Assistive Device Gait Belt,Front Wheeled Walker Gait Deviations General Gait Pattern Antalgic,Decreased Stride Length,Decreased Feet Clearance,Flexed Trunk,Lateral Trunk Lean,Narrow Based Gait Factors Limiting Gait Function Factors Limiting Gait Function Decreased Activity Tolerance, Decreased Strength,Poor Balance,Respiratory Distress Comments Gait Comments See mobility comments for details. Stair Climbing Assessment Comments Stair Climbing Comments Not assessed. PT-Balance Assessment Sitting Balance and Reactions Static Sitting Balance Ability Good Dynamic Sitting Balance Ability Good Standing Balance and Reactions Static Standing Balance Ability Good Dynamic Standing Balance Ability Fair Device Used FWW M5 PT-IP Objective Assessments Start: 05/05/20 10:09 Freq: NEEDED Status: Active Protocol: Document 05/05/20 16:25 AW (Rec: 05/05/20 16:51 AW [id number]) Orientation Orientation/Cognition Level of Alertness Alert Orientation Name,Day of Week,Place, Situation Language Function Ability No Deficits Noted Safety Awareness Understands Safety Issues Memory Description No Deficits Noted Gross Range of Motion Lower Extremity ROM Assessment Within Functional Limits Strength Lower Extremity Strength Assessment Bilaterally Impaired Comments Strength Comments BLE grossly 4/5 Sensation Assessment Sensation Gross Sensation WNL M6 PT-IP Treatment Start: 05/05/20 10:09 Freq: NEEDED Status: Active Protocol: Document 05/07/20 11:00 AW (Rec: 05/07/20 11:19 AW [id number]) Physical Therapy Treatment Education Education Provided Safety Other Treatments Other Treatment Performed Educated pt on PLB and energy conservation. Also discussed subacute rehab options with pt electing SNF rehab. M7 PT-IP Assessment and Plan Start: 05/05/20 10:09 Freq: NEEDED Status: Active Protocol: Document 05/07/20 11:00 AW (Rec: 05/07/20 11:19 AW [id number]) PT Summary Assessment and Plan Summary Impairments Strength,Balance,Bed Mobility, Transfers,Gait,Activity Tolerance Progress Towards Goals Slow Progress due to Activity Tolerance Assessment Summary Graciela continues to increase activity tolerance but remains well below baseline functional capacity. Her gait speed with FWW is less than safe for independent household mobility. SNF rehab is recommended. Pt to discharge this PM. Goals Bed Mobility Goal Independent Transfer Goal Independent,Front Wheeled Walker Gait Goal Independent,Front Wheel Walker Gait Distance 200 Other Goals - up/down one step with unilateral rail SBA - progress gait to 100 feet with LRAD or no AD IND Days to Meet Goals 6 Frequency of Treatment Frequency Of Treatment Once a Day Treatment Plan Physical Therapy Treatment Plan Bed Mobility Training,Transfer Training,Gait Training, Therapeutic Exercise,Balance Retraining,Discharge Planning, Hot or Cold Pack,Neuromuscular Re-ed Recommendations To Nursing Amount of Assist Needed Standby Assistance Discharge Recommendations PT Discharge Recommendations SNF Rehab Equipment Needed for Home Before defer to rehab setting Discharge Transportation Needs at Discharge Wheelchair/Cabulance
--- NOTE | 2020-05-07 11:25 | PM.DS.1 ---
History of Present Illness History of Present Illness Chief complaint: SOB Narrative: Patient is an 80-year-old female with a history of COPD, hypothyroidism, remote history of breast cancer, who presents to the hospital for increasing shortness of breath. Patient reports her symptoms have been coming along for some time. She received a Spiriva inhaler 6 weeks ago. She noted her breathing felt better initially. However over the past week she has been increasingly short of breath, had associated cough, also reports dyspnea on exertion and orthopnea. Because her symptoms were progressively worse she called 911 to be brought to the hospital for evaluation. The patient was found to be hypoxic. She was diffusely wheezing. She was given multiple inhalers and steroids but continued to be symptomatic. The patient's chest x-ray did not show any evidence of infiltrate. She did have a CT angio which showed following findings No focal infiltrates are seen. Areas of mucous plugging can be seeninvolving the lower lobes. No pleural effusions or pneumothorax. Central and peripheral airways are patent. While talking to the patient on room air her oxygen saturation was 88%. She does report a productive cough with clear white phlegm. She is admitted to the hospital for acute hypoxic respiratory failure secondary to COPD/asthma. Discharge Providers Provider Date of admission: 05/04/20 12:57 Discharge Date: 05/07/20 Primary care physician: Montrell Potter MD Consults: 05/04/20 14:03 Consult to Dietitian, Adult Routine Comment: Reason For Exam: weight loss Consult to Physical Therapy Evaluate & Treat Comment: Physician Instructions: Evaluate and Treat Discharge provider: William Chin MD Summary Hospital Course Discharge Diagnosis: 1. COPD exacerbation with mucus plugging 2. Acute hypoxic respiratory failure 3. Hyperlipidemia 4. Hypothyroidism Patient presented with shortness of breath, wheeze and hypoxia. On CTA was noted to have significant mucus plugging. She was treated with nebulizers, IV steroids and doxycycline. Her condition has improved over the last 1-2 days with O2 sats this morning 92% on room air. Lungs are clear on exam. Physical therapy has been seeing her in hospital. She is being discharged to [facility] for acute rehab prior to return home. Status at Discharge Cognitive/behavioral status at discharge: oriented Functional status at discharge: independent ambulation Overall status at discharge: patient is progressing back to baseline Time Spent with Patient Time spent: Greater than 30 minutes Exam Vital Signs (past 8 hours): - 05/07/20 05:00 05/07/20 05:55 05/07/20 07:40 Temperature 98.3 F 97.9 F Pulse Rate 75 71 78 Respiratory Rate 18 16 18 Blood Pressure 152/89 H 143/80 H Pulse Oximetry 95 92 94 05/07/20 07:53 Temperature Pulse Rate 80 Respiratory Rate 16 Blood Pressure Pulse Oximetry 92 Oxygen Delivery Method Room Air Oxygen Flow Rate 0 Objective Labs Result Diagrams: 05/04/20 06:00 05/04/20 06:00 [facility] Medical History Breast cancer (1990) Chicken pox COPD (chronic obstructive pulmonary disease) Hypothyroidism Measles Osteoporosis Whooping cough Surgical History Cataract extraction status of right eye Cataract extraction status, left eye Status post breast lumpectomy (1990) Family History Father Ulcer Mother Alzheimer's disease Sister Gallbladder disease Grandfather Kidney disease Grandmother complication Grandfather Stroke Grandmother Heart attack Social History household members: none Smoking Status: Never smoker alcohol intake: current substance use type: does not use Discharge Plan Discharge Plan Patient Disposition: SNF Transfer to: [facility] Consult as needed: Dental, Hearing, Mental health, Podiatry and Vision Discharge orders & Medications Prescriptions: New doxycycline hyclate 100 mg Tablet 100 mg PO BID Qty: 14 RF: 0 guaifenesin [Mucus Relief ER] 600 mg Tablet Extended Release 12hr 1,200 mg PO BID Qty: 120 RF: 0 prednisone 20 mg tablet 40 mg PO DAILY Qty: 14 RF: 0 Continued cholecalciferol (vitamin D3) [Vitamin D3] 1,000 UNIT tablet 1,000 iu PO Q DAY Qty: 0 RF: 0 Spiriva Respimat 2.5 mcg/actuation mist 2 inh inhalation QAM Qty: 4 RF: 1 pravastatin 20 mg tablet 20 mg PO HS Qty: 90 RF: 3 levothyroxine 112 mcg tablet 112 mcg PO QAM Qty: 90 RF: 3 montelukast [Singulair] 10 mg tablet 10 mg PO BEDTIME RF: 0 Changed albuterol sulfate 90 mcg/actuation HFA aerosol inhaler 2 puff INHALATION QID Qty: 6.7 RF: 11 Follow up/Referrals: Montrell Potter MD [Primary Care Provider] - Discharge Health Status Multidrug resistant organism: No MDRO Precautions: Roundup Diet/Activity/Treatments Diet: Regular Liquid consistency: Normal/Thin Food texture: Regular Oxygen: prn sat 90-92 [facility] Reason for rehabilitation: Recovery r/t decondition Rehab type: Physical therapy and Occupational therapy Discharge Data Primary Care Provider: Montrell Potter Quality VTE Deep Vein Thrombosis/Pulmonary Embolism Present on Admission: No
[2020-05-07 11:47] LABS: COVID19 -Nasal RAPID Negative (Negative)
--- NOTE | 2020-05-07 12:11 | CM.DPNOTE ---
Faxed [facility] and revised med list to September at on 05/07/20 per Rebekah. Received fax confirmation. Penny Aquino CM Asst.
--- NOTE | 2020-05-07 13:16 | PC.NURSE ---
Day shift: Report given to Graciela at [facility] at approx 1315.
--- NOTE | 2020-05-07 13:23 | CM.DPNOTE ---
DC Note DC to [facility] today via w/c. Patient remains aware and agreeable to plan. BARRY Francis coordinating details of this DC; signed med list faxed, COVID has been updated, transport arranged for 1500 p/u, DOREEN Stahl updated and planning to call report to Key at [facility]
--- NOTE | 2020-05-07 15:01 | PC.NURSE ---
Day shift: Pt left unit at approx 1500. She has all her personal belongings. SNF packet was given to transport person. Pt remains on RA with an SpO2 of > or = to 90%. Pt did seem to have some anxiety about going to the SNF this afternoon.
== END 2020-05-07 15:03 | DRG 190 ==
LOC: ED 11:07 → AC 13:24
PROVIDERS: Emergency Medicine; Internal Medicine; Admitting Provider Internal Medicine; Emergency Provider Emergency Medicine; PCP Student in an Organized Health Care Education/Training Program; Visit Provider Internal Medicine
DX: J44.1 Chronic obstructive pulmonary disease with (acute) exacerbation (principal); J96.01 Acute respiratory failure with hypoxia; E43 Unspecified severe protein-calorie malnutrition; Z68.1 Body mass index [BMI] 19.9 or less, adult; T17.990A Other foreign object in respiratory tract, part unspecified in causing asphyxiation, initial encounter; E03.9 Hypothyroidism, unspecified; E78.5 Hyperlipidemia, unspecified; Z20.822 Contact with and (suspected) exposure to COVID-19; Z85.3 Personal history of malignant neoplasm of breast
CPT/HCPCS: 36415; 71045; 71275; 80048; 82550; 83880; 84145; 84443; 84484; 85025; 85379; 87633; 87635; 93005; 94150; 94640; 94667; 94668; 94762; 97116; 97162; 99285; C9803; A9270; J1650; J2930; Q9967

== ENCOUNTER → 2021-05-12 10:46 | Outpatient (CLI) | payer MEDICARE, SELFPAY ==
[2020-05-04 14:46] VITALS: BMI 18.3
[2021-05-12 12:30] LABS: Cholesterol 166 mg/dL (140-199); HDL Cholesterol 64 mg/dL (40-60); LDL Cholesterol Calculated 85 mg/dL (<100); Triglycerides 85 mg/dL (35-150)
[2021-05-12 13:00] LABS: TSH w/ Reflex to FT4 0.91 uIU/mL (0.47-4.68)
[2021-05-12 15:27] LABS: Vitamin D 25 Hydroxy (D3) 53.9 ng/mL (30.0-100.0)
== END ==
PROVIDERS: PCP Student in an Organized Health Care Education/Training Program; Referring Provider Student in an Organized Health Care Education/Training Program; Visit Provider Student in an Organized Health Care Education/Training Program
DX: E78.00 Pure hypercholesterolemia, unspecified (principal); M81.0 Age-related osteoporosis without current pathological fracture; E03.9 Hypothyroidism, unspecified
CPT/HCPCS: 36415; 80061; 82306; 84443

== ENCOUNTER → 2021-05-29 09:46 | Outpatient (CLI) | payer MEDICARE, SELFPAY ==
[2020-05-04 14:46] VITALS: BMI 18.3
--- NOTE | 2021-05-29 09:48 | DI.RAD.S_ITS ---
PROCEDURE: XR DEXA AXIAL SKELETON INDICATIONS: Osteoporosis monitoring COMPARISON: None. FINDINGS: This blank DEXA report has been sent in error by the PACS system. The correct and complete report will be forthcoming in 1-2 days. Thank you for your patience and understanding. Dictated by: Annie Graham MD, PhD on 05/29/2021 at 11:33 Approved by: Annie Graham MD, PhD on 05/29/2021 at 11:33
== END ==
PROVIDERS: PCP Student in an Organized Health Care Education/Training Program; Referring Provider Student in an Organized Health Care Education/Training Program; Visit Provider Student in an Organized Health Care Education/Training Program
DX: M81.0 Age-related osteoporosis without current pathological fracture (principal); Z78.0 Asymptomatic menopausal state; E07.9 Disorder of thyroid, unspecified; Z82.62 Family history of osteoporosis; Z85.3 Personal history of malignant neoplasm of breast
CPT/HCPCS: 77080

== ENCOUNTER → 2022-05-19 10:51 | Outpatient (CLI) | payer MEDICARE, SELFPAY ==
[2020-05-04 14:46] VITALS: BMI 18.3
[2022-05-19 11:37] LABS: BUN Creatinine Ratio 26.3 (6-22); Blood Urea Nitrogen 21 mg/dL (7-17); Calcium 9.3 mg/dL (8.4-10.2); Carbon Dioxide 31 mmol/L (22-32); Chloride 96 mmol/L (98-107); Estimated Glomerular Filt Rate > 60 mL/min (>60); Glucose 88 mg/dL (80-110); HEMOLYSIS < 15 (0-50); Potassium 4.2 mmol/L (3.4-5.1); Sodium 138 mmol/L (137-145)
[2022-05-19 12:07] LABS: TSH w/ Reflex to FT4 1.36 uIU/mL (0.47-4.68)
== END ==
PROVIDERS: PCP Student in an Organized Health Care Education/Training Program; Referring Provider Student in an Organized Health Care Education/Training Program; Visit Provider Student in an Organized Health Care Education/Training Program
DX: Z79.899 Other long term (current) drug therapy (principal); M81.0 Age-related osteoporosis without current pathological fracture; E03.9 Hypothyroidism, unspecified
CPT/HCPCS: 36415; 80048; 84443

== ENCOUNTER → 2023-05-31 11:48 | Outpatient (CLI) | payer MEDICARE, SELFPAY ==
[2020-05-04 14:46] VITALS: BMI 18.3
[2023-05-31 13:21] LABS: Aspartate Aminotransferase 28 IU/L (14-36); BUN Creatinine Ratio 24.7 (6-22); Blood Urea Nitrogen 20 mg/dL (7-17); Calcium 9.3 mg/dL (8.4-10.2); Carbon Dioxide 29 mmol/L (22-32); Chloride 97 mmol/L (98-107); Cholesterol 170 mg/dL (140-199); Estimated Glomerular Filt Rate > 60 mL/min (>60); Glucose 84 mg/dL (80-110); HDL Cholesterol 58 mg/dL (40-60); HEMOLYSIS < 15 (0-50); LDL Cholesterol Calculated 90 mg/dL (<100); Potassium 4.3 mmol/L (3.4-5.1); Sodium 133 mmol/L (137-145); Triglycerides 111 mg/dL (35-150)
[2023-05-31 13:48] LABS: TSH w/ Reflex to FT4 1.05 uIU/mL (0.47-4.68)
== END ==
PROVIDERS: PCP Internal Medicine; Referring Provider Internal Medicine; Visit Provider Internal Medicine
DX: E78.2 Mixed hyperlipidemia (principal); E03.9 Hypothyroidism, unspecified
CPT/HCPCS: 36415; 80048; 80061; 84443; 84450

== ENCOUNTER → 2024-06-06 10:47 | Outpatient (CLI) | payer MEDICARE, SELFPAY ==
[2020-05-04 14:46] VITALS: BMI 18.3
[2024-06-06 11:44] LABS: Creatinine Urine Random 56.02 mg/dL
[2024-06-06 11:45] LABS: Hematocrit 43.2 % (36-46); Hemoglobin 14.4 g/dL (12.0-16.0); Mean Corpuscular HGB Conc 33.3 % (30-36); Mean Corpuscular Hemoglobin 29.4 PG (26-34); Mean Corpuscular Volume 88.5 fL (80-100); Platelet Count 306 X10^3/uL (150-400); Red Blood Cell Count 4.89 X10^6/uL (4.0-5.2); Red Cell Distribution Width 13.5 % (11.6-14.8); White Blood Cell Count 11.4 X10^3/uL (4.5-11.0)
[2024-06-06 11:49] LABS: Microalbumin Urine Random 1.1 mg/dL (0-1.6)
[2024-06-06 12:02] LABS: Aspartate Aminotransferase 28 IU/L (14-36); BUN Creatinine Ratio 23.9 (6-22); Blood Urea Nitrogen 21 mg/dL (7-17); Calcium 9.2 mg/dL (8.4-10.2); Carbon Dioxide 29 mmol/L (22-32); Chloride 97 mmol/L (98-107); Cholesterol 155 mg/dL (140-199); Estimated Glomerular Filt Rate > 60 mL/min (>60); Glucose 97 mg/dL (80-110); HDL Cholesterol 57 mg/dL (40-60); HEMOLYSIS < 15 (0-50); LDL Cholesterol Calculated 79 mg/dL (<100); Potassium 4.4 mmol/L (3.4-5.1); Sodium 135 mmol/L (137-145); Triglycerides 95 mg/dL (35-150)
== END ==
PROVIDERS: PCP Internal Medicine; Referring Provider Internal Medicine; Visit Provider Internal Medicine
DX: E03.9 Hypothyroidism, unspecified (principal); E78.2 Mixed hyperlipidemia; R03.0 Elevated blood-pressure reading, without diagnosis of hypertension
CPT/HCPCS: 36415; 80048; 80061; 82043; 82570; 84443; 84450; 85027